=== PATIENT | male | born 1975 | race Caucasian/White ===

== ENCOUNTER 2023-06-12 04:01 | Inpatient (IN) | payer SELFPAY ==
[2023-06-12] VITALS (148 sets, daily range): BP systolic 113–182; BP diastolic 52–99; PULSE 61–147; RESP 0–36; TEMP 36.4–37.9; O2SAT 9–97
--- NOTE | 2023-06-12 04:00 | RT.EKG_ITS ---
APPROVED REPORT Exam: Resting ECG Reason for Exam: overdose Patient Location: E HR:145 bpm ECG Measurements Heart Rate [address] [id number] P [id number] QRSd 144 QRS 93 QT 321 T -85 QTc 496 Conclusion Atrial flutter with poor baseline due to movement artifact
[2023-06-12] MEDS: Naloxone 0.4 MG/ML VIAL 2 MG IVP (04:05)
[2023-06-12] MEDS: Naloxone 0.4 MG/ML VIAL (04:07)
--- NOTE | 2023-06-12 04:15 | DI.RAD_ITS ---
Exam(s) XR PORTABLE CHEST AP EXAM: XR PORTABLE CHEST AP CLINICAL HISTORY: overdose, narcan given TECHNIQUE: 2D digital imaging was performed of the chest. One image was obtained. An AP view was ob tained. COMPARISON: No exams were available for comparison FINDINGS: There is poor inspiration. MEDIASTINUM: Normal. HEART: Mild cardiomegaly. PULMONARY VASCULATURE: There is mild pulmonary venous congestion. LUNGS: No focal consolidating infiltrates. PLEURAL SPACE: No pleural effusion or pneumothorax. BONE:Within normal limits for the patient's age. OTHER FINDINGS:Normal. IMPRESSION: 1. No focal consolidating infiltrates. 2. Exam limited by poor inspiration. 3. Mild cardiomegaly and pulmonary venous congestion. DATA REPOSITORY: RADIATION DOSE DELIVERED:
--- NOTE | 2023-06-12 04:15 | RT.EKG_ITS ---
APPROVED REPORT Exam: Resting ECG Reason for Exam: tachycardia, overdose Patient Location: E HR:90 bpm ECG Measurements Heart Rate 90 AXIS PA 171 P 66 QRSd 122 QRS 77 QT 389 T 33 QTc 477 Conclusion Sinus rhythm...normal P axis, V-rate 60- 99 Probable left atrial enlargement...P >50mS, <-0.10mV V1 Left ventricular hypertrophy...multiple LVH criteria
[2023-06-12] MEDS: Normal Saline 1,000 ML 1000 ML IV ×2 (04:25→08:32)
--- NOTE | 2023-06-12 04:26 | NUR.NOTE ---
AT 0408 pt STARTED BECOMING AGITATED AND COMBATIVE. pt WAS THRASHING IN BED. Nursing Note:
[2023-06-12 04:28] LABS: Abs Immature Grans 0.42 10^3/uL (0.0-0.06); Absolute Basophil Count 0.12 10^3/uL (0.0-0.2); Absolute Eosinophil Count 0.12 10^3/uL (0.0-0.7); Absolute Monocyte Count 0.96 10^3/uL (0.1-0.8); Basophils % 0.8; Eosinophils % 0.8; HCT 51.9 % (40.0-50.0); HGB 17.2 g/dL (13.5-17.5); Immature Grans % 2.8; Lymphocytes % 13.3; MCH 30.7 pg (27.0-33.0); MCHC 33.1 % (32.0-36.0); MCV 93 fL (80-95); MPV 9.7 fL (8.0-11.0); Monocytes % 6.4; Neutrophils % 75.9; Platelet Count 298 10^3/uL (130-400); RBC 5.61 10^6/uL (4.36-5.78); RDW 13.4 % (11.8-14.1); WBC 15.02 10^3/uL (4.4-10.8)
[2023-06-12 04:36] LABS: Lactate 10.6 mmol/L (0.6-1.4)
[2023-06-12 04:43] LABS: Prothrombin Time 10.4 sec (9.1-11.1)
[2023-06-12 04:45] LABS: Creatine Kinase 147 U/L (39-308)
[2023-06-12 04:47] LABS: ALT 50 U/L (16-63); AST 26 U/L (15-37); Albumin 4.3 g/dL (3.4-5.0); Alkaline Phosphatase 82 U/L (46-116); Anion Gap 9.1 mmol/L (3-11); BUN 14 mg/dL (7-18); Bilirubin, Total 0.5 mg/dL (0.2-1.0); CO2 28.9 mmol/L (21.0-32.0); CREATININE 1.8 mg/dL (0.70-1.30); Calcium 9.1 mg/dL (8.5-10.1); Chloride 101 mmol/L (98-107); Estimated GFR 47.01 (mL/min/1.73m2); Magnesium 2.8 mg/dL (1.8-2.4); Potassium 4.1 mmol/L (3.5-5.1); Sodium 139 mmol/L (136-145); Total Protein 7.5 g/dL (6.4-8.2); Troponin I < 50 ng/L (<or=60)
[2023-06-12 04:53] LABS: Glucose 555 mg/dL (74-106)
[2023-06-12 04:58] LABS: ETHANOL BLOOD < 3.0 mg/dL (<10)
--- NOTE | 2023-06-12 05:13 | W.ED.GENAD ---
HPI General Stated Complaint: GenMedical ADALID: 2 Date/Time Provider Initiated Documentation: 06/12/23 04:18. HPI Narrative: The patient is a 43-year-old male, with an unknown past medical history, who presents to the emergency department this evening as a narcotic overdose from a private vehicle. Initially the emergency room was contacted by the patient's mother, who is not a parent but some form of manager social responsibility that the patient was in transit to come and stay with. He was being transported to the area by a woman named Allison who initially identified herself as his sister, but the patient denied that Allison was his sister. According to Allison, the patient got into the car with her and initially seem to be normal. He quickly fell asleep and about an hour into the drive began having abnormal respirations. Allison was unable to wake him from his stupor and ultimately contacted the patient's mother. She recommended that the driver material handler truly bring him to an [facility] for evaluation. On arrival the patient was found to be unresponsive, with pinpoint pupils, and diffusely mottled with some areas of what appear to be compression or abrasion base trauma. The patient was obviously unable to provide any history, and the history was provided by the patient's mother. [facility] Social History Smoking/Tobacco Use Status: Unknown Smoking risk assessment performed?: Yes Substance use type: unknown Exam HENMT Other: The patient has bitten his tongue and has some blood coming from his mouth. The nose appears to have a abrasion on the soft tissue component of the zonia. Eyes Other: Pinpoint pupils Resp Other: Sonorous, shallow respirations with profound hypoxia Cardio Other: The patient is in an irregular tachycardia which appears to be A-fib or flutter on the monitor. Skin Other: The skin is mottled with central cyanosis, there are several areas on the chest and extremities which appear to have compression based petechial injuries, likely from laying in a dependent position for a protracted period of time. Neuro Other: The patient was initially completely unresponsive. After being given 2 mg of intranasal Narcan and 1.8 mg of IV Narcan, the patient began screaming uncontrollably and with difficulty controlling him. He required mechanical restraints. After period of time, the patient became less stuporous and more interactive and conversant. He appeared to wake up and is spontaneously moving all 4 extremities and is interactive and making cogent sense. Course Vital Signs Vital signs: Vital Signs Pulse 115 H 06/12/23 04:04 Respiratory Rate 0 L 06/12/23 04:04 Blood Pressure 156/74 H 06/12/23 04:04 Pulse Oximetry 80 L 06/12/23 04:04 Temperature 36.5 C 06/12/23 04:14 Pulse 92 H 06/12/23 04:46 Pulse 94 H 06/12/23 04:50 Respiratory Rate 14 06/12/23 04:50 Respiratory Pattern Apnea 06/12/23 04:09 Blood Pressure 168/82 H 06/12/23 04:46 Blood Pressure Mean 113 06/12/23 04:46 Pulse Oximetry 96 06/12/23 04:14 Lab/Test Results Lab/Test Results: Laboratory Tests Range/Units 06/12/23 06/12/23 04:10 04:28 WBC (4.4-10.8) 10^3/uL 15.02 H RBC (4.36-5.78) 10^6/uL 5.61 Hgb (13.5-17.5) g/dL 17.2 Hct (40.0-50.0) % 51.9 H MCV (80-95) fL 93 MCH (27.0-33.0) pg 30.7 MCHC (32.0-36.0) % 33.1 RDW (11.8-14.1) % 13.4 Plt Count (130-400) 10^3/uL 298 MPV (8.0-11.0) fL 9.7 Immature Gran % 2.8 Neutrophils % 75.9 Lymphocytes % 13.3 Monocytes % 6.4 Eosinophils % 0.8 Basophils % 0.8 Nucleated RBC % (0.0-0.3) % 0.0 Absolute Neutrophils (1.2-6.7) 10^3/uL 11.40 H Absolute Lymphocytes (1.2-3.4) 10^3/uL 2.00 Absolute Monocytes (0.1-0.8) 10^3/uL 0.96 H Absolute Eosinophils (0.0-0.7) 10^3/uL 0.12 Absolute Basophils (0.0-0.2) 10^3/uL 0.12 PT (9.1-11.1) sec 10.4 INR (0.9-1.1) 1.0 APTT (23.6-32.8) sec 27.0 VBG Lactate (0.6-1.4) mmol/L 10.6 H* Sodium (136-145) mmol/L 139 Potassium (3.5-5.1) mmol/L 4.1 Chloride (98-107) mmol/L 101 Carbon Dioxide (21.0-32.0) mmol/L 28.9 Anion Gap (3-11) mmol/L 9.1 BUN (7-18) mg/dL 14 Creatinine (0.70-1.30) mg/dL 1.8 H Est GFR (CKD-EPI 2020) (mL/min/1.73m2) 47.01 Glucose (74-106) mg/dL 555 H* Calcium (8.5-10.1) mg/dL 9.1 Magnesium (1.8-2.4) mg/dL 2.8 H Total Bilirubin (0.2-1.0) mg/dL 0.5 AST (15-37) U/L 26 ALT (16-63) U/L 50 Alkaline Phosphatase (46-116) U/L 82 Creatine Kinase (39-308) U/L 147 Troponin I (<or=60) ng/L < 50 Total Protein (6.4-8.2) g/dL 7.5 Albumin (3.4-5.0) g/dL 4.3 Ethyl Alcohol (<10) mg/dL < 3.0 Medical Decision Making The patient was seen and examined. After he was given Narcan he had a period of agitation but then improved significantly. His atrial fibs/flutter resolved spontaneously after he became more awake and alert and improved his oxygenation. The patient was found to have an elevated lactic acid level, and a markedly elevated glucose level, and some renal insufficiency. The patient was hydrated here in the emergency room with 2 L of normal saline and his fingerstick glucose level has improved to 352 with just the fluid. Most of these laboratory abnormalities seem to be consistent with shock. The patient does not have a significantly elevated CPK level and has no significant electrolyte derangement at this time. The patient will continue to be monitored for improvement in his sensorium and vital signs. He will continue to be hydrated at this time. Disposition will depend the patient's willingness to be admitted to the hospital and recurrent lab testing to determine if the anomalies are improving. Quality:SDOH Health Related Social Needs: No Data to Display Discharge Plan Discharge Details Chief Complaint: GenMedical Primary Care Provider: Unknown,Unknown ED Provider: Shabbir Morales
[2023-06-12] MEDS: Naloxone 0.4 MG/ML VIAL 0.1 MG IVP ×3 (05:43→06:02)
--- NOTE | 2023-06-12 06:10 | W.ED.GENAD ---
HPI General Stated Complaint: GenMedical ADALID: 2 Date/Time Provider Initiated Documentation: 06/12/23 04:18. PFSH Social History Smoking/Tobacco Use Status: Unknown Smoking risk assessment performed?: Yes Substance use type: unknown Course Vital Signs Vital signs: Vital Signs Pulse 115 H 06/12/23 04:04 Respiratory Rate 0 L 06/12/23 04:04 Blood Pressure 156/74 H 06/12/23 04:04 Pulse Oximetry 80 L 06/12/23 04:04 Temperature 36.5 C 06/12/23 04:14 Pulse 102 H 06/12/23 05:31 Pulse 102 H 06/12/23 05:40 Respiratory Rate 10 L 06/12/23 05:40 Respiratory Pattern Apnea 06/12/23 04:09 Blood Pressure 182/88 H 06/12/23 05:31 Blood Pressure Mean 113 06/12/23 05:31 Pulse Oximetry 96 06/12/23 04:14 Respiratory End-tidal CO2 53 06/12/23 05:40 Lab/Test Results Lab/Test Results: Laboratory Tests Range/Units 06/12/23 06/12/23 04:10 04:28 WBC (4.4-10.8) 10^3/uL 15.02 H RBC (4.36-5.78) 10^6/uL 5.61 Hgb (13.5-17.5) g/dL 17.2 Hct (40.0-50.0) % 51.9 H MCV (80-95) fL 93 MCH (27.0-33.0) pg 30.7 MCHC (32.0-36.0) % 33.1 RDW (11.8-14.1) % 13.4 Plt Count (130-400) 10^3/uL 298 MPV (8.0-11.0) fL 9.7 Immature Gran % 2.8 Neutrophils % 75.9 Lymphocytes % 13.3 Monocytes % 6.4 Eosinophils % 0.8 Basophils % 0.8 Nucleated RBC % (0.0-0.3) % 0.0 Absolute Neutrophils (1.2-6.7) 10^3/uL 11.40 H Absolute Lymphocytes (1.2-3.4) 10^3/uL 2.00 Absolute Monocytes (0.1-0.8) 10^3/uL 0.96 H Absolute Eosinophils (0.0-0.7) 10^3/uL 0.12 Absolute Basophils (0.0-0.2) 10^3/uL 0.12 PT (9.1-11.1) sec 10.4 INR (0.9-1.1) 1.0 APTT (23.6-32.8) sec 27.0 VBG Lactate (0.6-1.4) mmol/L 10.6 H* Sodium (136-145) mmol/L 139 Potassium (3.5-5.1) mmol/L 4.1 Chloride (98-107) mmol/L 101 Carbon Dioxide (21.0-32.0) mmol/L 28.9 Anion Gap (3-11) mmol/L 9.1 BUN (7-18) mg/dL 14 Creatinine (0.70-1.30) mg/dL 1.8 H Est GFR (CKD-EPI 2020) (mL/min/1.73m2) 47.01 Glucose (74-106) mg/dL 555 H* Calcium (8.5-10.1) mg/dL 9.1 Magnesium (1.8-2.4) mg/dL 2.8 H Total Bilirubin (0.2-1.0) mg/dL 0.5 AST (15-37) U/L 26 ALT (16-63) U/L 50 Alkaline Phosphatase (46-116) U/L 82 Creatine Kinase (39-308) U/L 147 Troponin I (<or=60) ng/L < 50 Total Protein (6.4-8.2) g/dL 7.5 Albumin (3.4-5.0) g/dL 4.3 Ethyl Alcohol (<10) mg/dL < 3.0 Medical Decision Making Quality:SDOH Health Related Social Needs: No Data to Display Discharge Plan Discharge Details Chief Complaint: GenMedical Primary Care Provider: Unknown,Unknown ED Provider: Shabbir Morales
--- NOTE | 2023-06-12 06:12 | ED.PROG_ITS ---
Date of service: 06/12/23 Time of Service: 06:12 Medical Decision Making The patient's chest x-ray appears to reveal new pulmonary edema. The patient reevaluation at the bedside however does not reveal any significant auscultated lung sounds would be consistent with pulmonary edema. However, the patient continues to have significant hypoxia and is requiring relatively significant amount of supplemental oxygen to maintain a mid 90s saturation. The patient also continues to have a relatively high CO2 level in and expiratory phases. The patient has become somnolent again and has required multiple low doses of IV Narcan to maintain a normal respiratory/ventilatory state. At this time, I have ordered the patient be placed on a Narcan infusion and I have requested the patient be placed on BiPAP. The patient will require continued observation in the hospital with supportive respiratory care, ongoing toxicology care, and observation for improvement in his blood glucose and acute kidney injury. 0800 - The hospital pharmacy reports that at the current drip rate for the Narcan drip, the hospital will be out of Narcan for the weekend within approximately 10 hours. I discussed the case with the morning hospitalist Dr. Herrera, who came down and evaluated the patient. She had recommended that we try to find lateral transfers for the patient and possible to a facility that had a more generous supply of Narcan. After calling several facilities, [facility] has agreed to look at their capacity and determine if they can take the patient in transfer while other smaller facilities have simply declined. Dr. Herrera did interview the patient who reports at this time that he would like to be DNR/DNI. He refused intubation, chest compressions, or cardioversions. He is okay with medical therapy but no other treatments at this time. The case will be signed out to Dr. Dunham pending the final disposition. If [facility] can accept the patient in transfer, then he can be sent to their facility. Otherwise, Dr. Herrera has agreed to admit the patient and utilize the resources that are available for now. Quality:SDOH Health Related Social Needs: No Data to Display Critical Care Time Critical Care Time Critical Care Time: Yes Total Critical Care Time: 120 Attestation: The patient has required multiple reevaluations and multiple medical and respiratory interventions to maintain a normal oxygen saturation and ventilatory state. The patient will be placed on BiPAP and a Narcan infusion to help improve his ongoing opioid toxidrome. Discharge Plan Discharge Details Chief Complaint: GenMedical Primary Care Provider: Unknown,Unknown ED Provider: Shabbir Morales
--- NOTE | 2023-06-12 06:46 | RESPIRATORY ---
ED MD increased BiPap O2 to 35%
--- NOTE | 2023-06-12 07:01 | NUR.NOTE ---
Report given to Alcon LANG Nursing Note:
[2023-06-12 07:40] LABS: BE (Venous) -1 mmol/L (-2-3); HCO3 (Venous) 25 mmol/L (23-28); O2 Sat (Venous) 95 %; TCO2 (Venous) 23 mmol/L (24-29); pCO2 (Venous) 52 mmHg (41-51); pO2 (Venous) 70 mmHg
[2023-06-12 07:41] LABS: Lactate 0.8 mmol/L (0.6-1.4)
[2023-06-12] MEDS: Ondansetron 4 MG/2 ML VIAL (07:52)
--- NOTE | 2023-06-12 08:02 | DI.VRAD_ITS ---
PROCEDURE INFORMATION: Exam: XR Chest Exam date and time: 06/12/2023 5:14 AM Age: 43 years old Clinical indication: Other: Overdose, narcan given TECHNIQUE: Imaging protocol: Radiologic exam of the chest. Views: 1 view. COMPARISON: No relevant prior studies available. FINDINGS: Lungs: Unremarkable. No consolidation. Pleural spaces: Unremarkable. No pleural effusion. No pneumothorax. Heart/Mediastinum: Cardiomegaly with mild congestion Bones/joints: Unremarkable. IMPRESSION: Cardiomegaly with mild congestion Dictated and Authenticated by: Aydee Zhang MD. Ordering:KENDALL Shea MD
--- NOTE | 2023-06-12 08:02 | W.MEDCONSULT ---
Date of service: 06/12/23 Time of Service: 07:30 Assessment and Plan Assessment and plan (1) Acute respiratory failure with hypoxia and hypercapnia: Status: Acute Assessment and plan: In setting of what looks clinically like an opioid overdose. Continue BiPAP support while co-administering narcan gtt. The patient is DNR/DNI, but agrees to BiPAP and to narcan. Due to the dosage of narcan that the patient is requiring to stay awake and his DNR/DNI status, I do feel that transfer to a tertiary care facility which has more narcan in-house is indicated. I have discussed this with Dr Morales, who is pursuing transfer. (2) Opioid overdose: Status: Acute Assessment and plan: As above (3) Elevated troponin: Status: Acute Assessment and plan: In setting of respiratory failure and overdose, as well as Afib, I think this represents demand ischemia. It also sounds like the ME the patient described several years ago at [facility] was a type 2 NSTEMI. Would continue to trend troponins. When able, would benefit from an echocardiogram. Continue cardiac monitoring. (4) Afib: Status: Resolved Assessment and plan: Was self-limited at the time of acute respiratory failure and overdose. Continue cardiac monitoring. Obtain an echo when able. (5) Hyperglycemia: Status: Acute Assessment and plan: The patient denies h/o DM. Obtain an A1C and await UA. His original BMP was not c/w DKA. (6) Leucocytosis: Status: Acute Assessment and plan: Likely reactive given an overdose event. I will add on a procalcitonin. The patient denies IVD use, but blood cultures might be prudent to check as well. Await UA. (7) Hypermagnesemia: Status: Acute Assessment and plan: Will need trending. (8) Lactic acidosis: Status: Resolved Assessment and plan: In setting of respiratory failure/overdose/Afib. This appears to have resolved. (9) Cardiomegaly: Status: Chronic Assessment and plan: Seen on CXR with evidence of mild pulmonary congestion. Check NT-proBNP and obtain an echo when able. I am ordering all of the above recommended labs. Please, do not hesitate to contact me with any questions re help of management of this patient while he is awaiting transfer. Discussed with Dr Morales. Total Critical Care Time 45 minutes. History of Present Illness History of Present Illness Chief Complaint: unintentional overdose likely with fentanyl Narrative: Mr Blanc is a 43 year old male with PMHx of polysubstance abuse (heroin in the past, cocaine, marijuana, psilocybin), who was brought to [facility] ED by a friend today (who was driving) after falling asleep, developing sonorous breathing, and becoming unresponsive in a vehicle (was a passenger) 15 minutes after smoking what the patient states he thought was cocaine. On arrival to the ER parking lot, the patient was unresponsive, cyanotic, and had pinpoint pupils. He received 0.8 mg of narcan with return to consciousness and becoming agitated. Agitation was self-limited. The patient was requiring supplemental oxygen and had evidence of hypoventilation by end-tidal CO2. He started to become more somnolent clinically as well. At that point, 4 more mg of narcan were given, followed by again need to give narcan about a half an hour later. He required several additional boluses of narcan, at which point a decision was made to start him on the narcan drip. He was also placed on BiPAP for his acute hypoxic hypercapnic respiratory failure due to CO2 narcosis in setting of likely opioid overdose. The patient himself states that until about a month ago he was only using marijuana. He did not think he was using an opiate last night. At the time of my exam, he denies CP, SOB, does endorse feeling tired/sleepy, and did develop n/v, which then resolved. He was briefly taken off of BiPAP while he was vomiting, but after he received antiemetics and symptoms resolved, was being placed on it. The patient had required He was also in rapid Afib/flutter in 150s on arrival, spontaneously converting to NSR. The patient also had hyperglycemia with BG of 555 on the original chemistry. The patient denies history of diabetes. No evidence of acidosis was seen on that original chemistry. His initial lactate was 10.6; repeat is 0.8. His repeat fingerstick was 352. UA and UDS are not yet available. The patient was A&Ox3 during my conversation with him. He was able to have a discussion with me about his code status, as was witnessed by nursing and the ED provider. He stated that he did not want to be rescucitated: no intubation or chest compression, even for a reversible cause such as an overdose. He is ok with the use of BiPAP. We discussed the narcan shortage at our facility and the fact that we are seeking transfer to a facility with more narcan available (at our facility, at his current rate of narcan drip, we have 5-6 hours of narcan left). The patient verbalized understanding. Review of Systems All systems reviewed & are unremarkable except as noted in HPI and below PFSH All Active Problems (Updated 06/12/23 @ 08:35 by Ann-Marie Herman MD) Cardiomegaly (Chronic) Hypermagnesemia (Acute) Leucocytosis (Acute) Hyperglycemia (Acute) Elevated troponin (Acute) Opioid overdose (Acute) Acute respiratory failure with hypoxia and hypercapnia (Acute) Polysubstance use disorder (Acute) Medical History (Updated 06/12/23 @ 08:35 by Ann-Marie Herman MD) Overdose heroin overdose several years ago Rupture of left biceps tendon Opioid overdose Myocardial infarction [facility], in setting of overdose; no cardiac catheterization performed at that time, per patient Surgical History (Updated 06/12/23 @ 08:19 by Ann-Marie Herman MD) H/O meniscectomy of right knee x2 History of lumbosacral spine surgery Femur fracture, left S/p surgical repair Thumb injury R thumb requiring pinning Family History (Updated 06/12/23 @ 08:20 by Ann-Marie Herman MD) Mother Heart disease Diabetes Hypertension Father Heart disease Diabetes Hypertension Maternal Aunt Cancer type unknown Maternal Grandmother Cancer type unknown Social History (Updated 06/12/23 @ 08:21 by Ann-Marie Herman MD) Smoking/Tobacco Use Status: Current every day Smoking risk assessment performed?: Yes Alcohol Intake: never Substance use type: marijuana, crack/cocaine, hallucinogens and opiates Counseling given: Yes Counseling provided: provider counseling Exam Narrative Exam Narrative: General: A somnolent but arousable middle-aged male who is A&Ox3, but does dose off in the middle of the interview, cooperative and pleasant when awake, seen on BiPAP and then taken off of it when started vomiting and placed on 4L of O2 by NC Neurological: A&Ox3, pupils pinpoint, no focal deficits Psychiatric: Appropriate speech pattern/content Skin: nasal and L-sided facial early ecchymoses/skin contusions HEENT: Atraumatic, normocephalic, EOMI, pinpoint pupils, MMM, no goiter or JVD Cardiovascular: RRR, no m/r/g Lungs: CTAB Gastrointestinal: nondistended Genitourinary: no davis at the time of exam Extremities: no edmea BLEs, 1+ pedal pulses B Results Last Vital Signs Temp 36.5 C 06/12/23 04:14 Pulse 82 06/12/23 06:46 Resp 17 06/12/23 06:46 BP 137/84 06/12/23 06:46 Pulse Ox 96 06/12/23 06:32 Labs 06/12/23 04:10 06/12/23 04:10 Labs: Laboratory Results - last 24 hr 06/12/23 06/12/23 06/12/23 04:10 04:28 07:36 WBC 15.02 H RBC 5.61 Hgb 17.2 Hct 51.9 H MCV 93 MCH 30.7 MCHC 33.1 RDW 13.4 Plt Count 298 MPV 9.7 Immature Gran % 2.8 Neutrophils % 75.9 Lymphocytes % 13.3 Monocytes % 6.4 Eosinophils % 0.8 Basophils % 0.8 Nucleated RBC % 0.0 Absolute Neutrophils 11.40 H Absolute Lymphocytes 2.00 Absolute Monocytes 0.96 H Absolute Eosinophils 0.12 Absolute Basophils 0.12 PT 10.4 INR 1.0 APTT 27.0 VBG pH 7.30 L VBG pCO2 52 H VBG pO2 70 VBG HCO3 25 VBG Total CO2 23 L VBG O2 Saturation 95 VBG Base Excess -1 VBG Lactate 10.6 H* 0.8 Sodium 139 Potassium 4.1 Chloride 101 Carbon Dioxide 28.9 Anion Gap 9.1 BUN 14 Creatinine 1.8 H Est GFR (CKD-EPI 2020) 47.01 Glucose 555 H* Calcium 9.1 Magnesium 2.8 H Total Bilirubin 0.5 AST 26 ALT 50 Alkaline Phosphatase 82 Creatine Kinase 147 Troponin I < 50 Total Protein 7.5 Albumin 4.3 Ethyl Alcohol < 3.0 Imaging Imaging Studies: CXR: Cardiomegaly with mild congestion EKG #1: poor quality EKG, does appear to be irregularly irregular c/w A.fib, HR 145, apparent inferior T wave inversions, but no further conclusions can be drawn and no baseline available for comparison EKG #2: NSR, HR 90, no acute ischemia
[2023-06-12 08:05] LABS: Troponin I 233 ng/L (<or=60)
--- NOTE | 2023-06-12 08:15 | DI.CT_ITS ---
Exam(s) CT HEAD CERVICAL SPINE WO EXAM: CT HEAD CERVICAL SPINE WO CLINICAL HISTORY: trauma. TECHNIQUE: Imaging Protocol: Axial computed tomography images with coronal and sagittal reformatted images were created and reviewed COMPARISON: No exams were available for comparison FINDINGS: CT Head: Ventricles and Extra axial spaces: Normal in size and morphology for the patient's age. Hemorrhage: None. Cerebral parenchyma: Normal. Midline shift: None. Brainstem/Cerebellum: Normal. Calvarium: Normal. Visualized Paranasal sinuses/Mastoids: Clear. Soft Tissues: Unremarkable. CT Cervical Spine: Bones: No acute fracture or subluxation. There are mild degenerative changes seen in the cervical spi ne. Soft Tissues: Unremarkable. Lung Apices: Clear. IMPRESSION: 1. No acute intracranial process. 2. No acute fracture or subluxation in the cervical spine. RADIATION DOSE DELIVERED: 1,230.22mGy.cm Total DLP DATA REPOSITORY: All CT scans at this facility are submitted to the National Radiology Data Registry (NRDR) Dose Index Registry (DIR) with the [employer] ([employer]). RADIATION OPTIMIZATION: All CT scans at this facility use at least one of these dose optimization te chniques: automated exposure control; mA and/or kV adjustment per patient size (includes targeted exa ms where dose is matched to clinical indication); or iterative reconstruction.
--- NOTE | 2023-06-12 08:17 | W.EDPROG ---
Date of service: 06/12/23 Time of Service: 08:41 Medical Decision Making I have received signout. I have seen and examined the patient. We are awaiting a callback from [facility] regarding transfer. The patient appears more awake than he did when I initially saw him at 7 AM. He has vomited twice. We have discontinued the CPAP and put him on a nonrebreather with sats of 99 to 100%. The patient appears to have frostbite on his nose and left cheek. He also has abrasions on his right chest without subcutaneous emphysema or point tenderness. I have informed him of the positive troponin. He tells me he had a similar episode about a year ago and was hospitalized at [facility]. We will attempt to get those records. I have ordered a CT of his head C-spine chest and abdomen all without IV contrast, because of his acute renal injury.. I have reviewed his EKGs and there is no evidence of acute ischemia. 10:27 AM I have spoken with the [facility] and they have no record of the patient ever being admitted there. His mental status has much improved. We have discontinued the Narcan drip and he is still responsive and still requiring supplemental oxygen. He is only on 3 L with an O2 sat of 97% 10:46 A I have spoken to [place] [facility] Valle did not think that the patient required anything further than aspirin. 11:33 AM the patient's third troponin is slightly elevated at 363. We have notified the [facility] transfer center and I am awaiting a callback from the beaming machine operator. I have spoken with Dr. Valle the beaming machine operator at [facility] again. He did not recommend any change in treatment since the patient's EKG is unchanged and he is not having any chest pain. I have discussed the case with Dr. Herman the hospitalist here who has agreed to admit him. Imaging Data Radiologic Study: Imaging: CT Scan (CT chest without contrast) Radiologist's impression: vRad impression: Right lower lobe infiltrate. This may be related to infection, contusion or aspiration. Radiologic Study #2: Imaging: CT Scan (CT abdomen and pelvis without contrast) Radiologist's impression: vRad impression no acute findings. Radiologic Study #3: Imaging: CT Scan (CT head without contrast) Radiologist's impression: Normal head CT Radiologic Study #4: Imaging: CT Scan (CT cervical spine without contrast) Radiologist's impression: vRad impression no acute findings Radiologic Study #5: Imaging: CT Scan (CT head noncontrast) Radiologist's impression: Normal head CT Radiologic Study #6: Imaging: CT Scan (CT C-spine without contrast) Radiologist's impression: vRad impression no acute findings. Lab Data Lab results reviewed: Yes I reviewed the patient's lab results. Lab results narrative: The patient is positive for COVID. His blood sugar has improved last fingerstick was slightly greater than 100. Quality:SDOH Health Related Social Needs: No Data to Display Sign Out Sign Out Data: Sign Out Comment: The patient is currently being evaluated for transfer by [facility] and [facility]. Dr. Herrera came and evaluated the patient and is willing to admit the patient if the other facilities declined to take him in transfer. Last updated by Shabbir Morales MD at 06/12/23 08:05 Discharge Plan Discharge Details Chief Complaint: GenMedical Admit Date/Time: 06/12/23 12:00 Admit Provider: Ann-Marie Herman Attending Provider: Ann-Marie Herman Primary Care Provider: Unknown,Unknown ED Provider: Ashlyn Perez
--- NOTE | 2023-06-12 08:30 | DI.CT_ITS ---
Exam(s) CT CHEST/ABD/PEL WO EXAM: CT CHEST/ABD/PEL WO CLINICAL HISTORY: trauma TECHNIQUE: Imaging Protocol: Axial computed tomography images with coronal and sagittal reformatted images were created and reviewed COMPARISON: CR,XR XR PORTABLE CHEST AP from 06/12/2023 FINDINGS: There is artifact from the patient's arm placement. CHEST: Tracheobronchial tree: Patent where visualized. There is a small amount of debris seen in the distal trachea which may reflect aspiration. Pulmonary parenchyma: Atelectatic changes are seen in the lung bases. There is a peripheral infiltra te in the posterior medial aspect of the right lower lobe. The lungs are otherwise clear. No oneil ectural distortion. Calcified granuloma in the right lower lobe. Mediastinum and Ana: No dominant adenopathy or fluid collection. The esophagus is unremarkable. Thyroid gland: Unremarkable. Pleura: No effusion or pneumothorax. Heart: The heart is not dilated. No coronary artery calcifications are seen. No pericardial effusion. Aorta: Thoracic aorta non-dilated. Lymph nodes: Within normal limits. Bones:Within normal limits for the patient's age. Soft tissues: Unremarkable. ABDOMEN: Liver: Normal density. No measurable mass. Gallbladder and Biliary Tract: No radiodense calculus or dilation. Pancreas: Normal density, no abnormal calcifications or inflammatory process. Spleen: Normal. Adrenals: No masses seen. Kidneys: Normal size, contour and axis. No radiodense stones or obstructive uropathy. No masses seen. Abdominal Aorta: Abdominal portion non-dilated. Bowel: There is diverticulosis of the colon without evidence of acute diverticulitis. There is no ev idence of bowel obstruction or bowel wall thickening. There is a normal appendix. Peritoneal Cavity: No ascites, collection or mesenteric inflammatory response. No free air. Lymph Nodes: Within normal limits. Bones: Within normal limits for the patient's age. Soft Tissues: There is a small fat containing umbilical hernia. PELVIS: Bladder: Symmetric distention, no gross wall thickening. Reproductive Organs: Unremarkable as visualized. Lymph Nodes: Within normal limits. Bones: Within normal limits for the patient's age. IMPRESSION: 1. Right lower lobe infiltrate. Differential considerations include infection or contusion. Aspirat ion should be considered. 2. No acute abdominal or pelvic process. RADIATION DOSE DELIVERED: 1,718.48mGy.cm Total DLP 1,718.48mGy.cm Total DLP DATA REPOSITORY: All CT scans at this facility are submitted to the National Radiology Data Registry (NRDR) Dose Index Registry (DIR) with the [employer] (A[employer]). RADIATION OPTIMIZATION: All CT scans at this facility use at least one of these dose optimization te chniques: automated exposure control; mA and/or kV adjustment per patient size (includes targeted exa ms where dose is matched to clinical indication); or iterative reconstruction.
[2023-06-12] MEDS: Droperidol 5 MG/2 ML VIAL 1.25 MG IVP (08:31)
[2023-06-12] MEDS: Aspirin 81 MG CHEW 324 MG CH (09:06)
[2023-06-12 09:11] LABS: Lab Add On Test DONE
[2023-06-12 09:29] LABS: Hemoglobin A1C 5.8 % (<5.7)
[2023-06-12] MEDS: Normal Saline Flush 10 ML SYR IVP ×2 (09:29→22:41)
--- NOTE | 2023-06-12 09:33 | DI.VRAD_ITS ---
PROCEDURE INFORMATION: Exam: CT Chest Without Contrast; Diagnostic Exam date and time: 06/12/2023 8:56 AM Age: 43 years old Clinical indication: Other: ? Od, fall TECHNIQUE: Imaging protocol: Diagnostic computed tomography of the chest without contrast. COMPARISON: CR XR PORTABLE CHEST AP 06/12/2023 5:14 AM FINDINGS: Lungs: Right lower lobe infiltrate. Pleural spaces: Unremarkable. No pneumothorax. No pleural effusion. Heart: Unremarkable. No cardiomegaly. No pericardial effusion. Lymph nodes: Unremarkable. No enlarged lymph nodes. Vasculature: Unremarkable. No aortic aneurysm. Bones/joints: Unremarkable. No acute fracture. Soft tissues: Unremarkable. IMPRESSION: Right lower lobe infiltrate. This may be related to infection, contusion or aspiration. PROCEDURE INFORMATION: Exam: CT Abdomen And Pelvis Without Contrast Exam date and time: 06/12/2023 8:56 AM Age: 43 years old Clinical indication: Other: ? Od, fall TECHNIQUE: Imaging protocol: Computed tomography of the abdomen and pelvis without contrast. COMPARISON: CR XR PORTABLE CHEST AP 06/12/2023 5:14 AM FINDINGS: Liver: Normal. No mass. Gallbladder and bile ducts: Normal. No calcified stones. No ductal dilation. Pancreas: Normal. No ductal dilation. Spleen: Normal. No splenomegaly. Adrenal glands: Normal. No mass. Kidneys and ureters: Normal. No hydronephrosis. Stomach and bowel: Unremarkable. No obstruction. No mucosal thickening. Appendix: No evidence of appendicitis. Intraperitoneal space: Unremarkable. No free air. No significant fluid collection. Vasculature: Unremarkable. No abdominal aortic aneurysm. Lymph nodes: Unremarkable. No enlarged lymph nodes. Urinary bladder: Unremarkable as visualized. Reproductive: Unremarkable as visualized. Bones/joints: Unremarkable. No acute fracture. Soft tissues: Unremarkable. IMPRESSION: No acute findings. Dictated and Authenticated by: Aydee Zhang MD. Ordering:EDDIE Goldberg MD
[2023-06-12 09:35] LABS: Influenza A PCR Negative (Negative); Influenza B PCR Negative (Negative); RSV PCR Negative (Negative)
--- NOTE | 2023-06-12 09:35 | DI.VRAD_ITS ---
PROCEDURE INFORMATION: Exam: CT Head Without Contrast Exam date and time: 06/12/2023 8:54 AM Age: 43 years old Clinical indication: Other: ? Od, fall TECHNIQUE: Imaging protocol: Computed tomography of the head without contrast. COMPARISON: No relevant prior studies available. FINDINGS: Brain: Normal. No intraxial or extraaxial hemorrhage. No infarct visible at this time. Unremarkable white matter. No mass effect. No significant involutional change. Cerebral ventricles: Normal. No ventriculomegaly or midline shift. Pituitary gland and sella: Normal. No enlargement. Paranasal sinuses: Visualized sinuses are unremarkable. No fluid levels or mucosal thickening. Mastoid air cells: Visualized mastoid air cells are well aerated. Bones/joints: Unremarkable. No acute fracture. Soft tissues: Unremarkable. Vasculature: No significant atherosclerotic calcification. IMPRESSION: Normal head CT. PROCEDURE INFORMATION: Exam: CT Cervical Spine Without Contrast Exam date and time: 06/12/2023 8:54 AM Age: 43 years old Clinical indication: Other: ? Od, fall TECHNIQUE: Imaging protocol: Computed tomography of the cervical spine without contrast. COMPARISON: CR XR PORTABLE CHEST AP 11/06/2023 05:14 FINDINGS: Bones/joints: Cervical vertebral bodies are normal in height and alignment with no fracture. Odontoid process is intact. Disc space narrowing is present at C6-C7. In the posterior column facet joints are normally aligned with no hypertrophic change or trauma. Lungs: Lung apices are clear. Soft tissues: Unremarkable. No prevertebral soft tissue swelling. IMPRESSION: No acute findings. Dictated and Authenticated by: Alexis Faulkner MD. Ordering:EDDIE Goldberg MD
[2023-06-12 09:37] LABS: NT-proBNP 123 pg/mL (<300)
[2023-06-12 09:38] LABS: COVID-19 PCR Positive (Negative); Source Nasopharynx
[2023-06-12 09:48] LABS: Procalcitonin 1.7 ng/mL
[2023-06-12] MEDS: Normal Saline 1,000 ML 125 ML IV (10:00)
[2023-06-12] MEDS: Dexamethasone 4 MG/ML VIAL 6 MG IVP (10:25)
[2023-06-12] MEDS: AMPICILLIN/SULBACTAM 3 GM in Normal Saline 100 ML IVPB ×3 (10:25→22:23)
[2023-06-12] MEDS: REMDESIVIR 200 MG in Normal Saline 250 ML 250 MG IVPB (10:54)
[2023-06-12 11:14] LABS: Creatine Kinase 346 U/L (39-308)
[2023-06-12 11:19] LABS: Troponin I 363 ng/L (<or=60)
--- NOTE | 2023-06-12 11:30 | RT.EKG_ITS ---
APPROVED REPORT Exam: Resting ECG Reason for Exam: elevated troponin Patient Location: E HR:71 bpm ECG Measurements Heart Rate 71 AXIS VT 160 P 48 QRSd 113 QRS 62 QT 391 T 45 QTc 426 Conclusion Sinus rhythm...normal P axis, V-rate 60- 99 NSR, no ectopy, nonspecific conduction delay. NO STEMI. no significant changes from previous.
[2023-06-12 11:38] LABS: BE (Venous) -2 mmol/L (-2-3); HCO3 (Venous) 25 mmol/L (23-28); O2 Sat (Venous) 95 %; TCO2 (Venous) 22 mmol/L (24-29); pCO2 (Venous) 51 mmHg (41-51); pH (Venous) 7.29 (7.31-7.41); pO2 (Venous) 67 mmHg
--- NOTE | 2023-06-12 13:27 | NUR.NOTE ---
Patient arrives on ICU unit at 13:10. Patient initially said he did not want to be admitted. RN consults with Dr. Herman who sees patient in ICU. Patient nods that he agrees to be admitted.
--- NOTE | 2023-06-12 13:30 | NUR.NOTE ---
Nursing Note: Got the patient up to the ICU and he stated What am I being admitted? I told her that I did not want to be admitted. Eliezer from the ICU went and spoke with the hospitalist and she told him that she would come in to his room in the ICU and have a conversation with him. He was agreeable to that plan.
--- NOTE | 2023-06-12 13:32 | NUR.NOTE ---
Patient arrives on ICU at 13:10 and did not want to be admitted. RN telephonically consults with MD who is informed of patient's desire not to be admitted. MD meets with patient who nods in agreement that he agrees to being admitted. RN speaks with respiratory therapist and informs her MD would like patient to be on BIPAP. Respiratory therapist to go to ED to retrieve BIPAP machine.Nursing Note:
[2023-06-12] MEDS: Heparin 5,000 UNITS/ML VIAL 5000 UNITS SC ×2 (14:15→22:41)
[2023-06-12] MEDS: Lactated Ringers 1,000 ML 150 ML IV ×2 (14:25→19:56)
[2023-06-12 14:32] LABS: Troponin I 352 ng/L (<or=60)
--- NOTE | 2023-06-12 14:57 | NUR.NOTE ---
[Patient is presently quite sleepy. Patient 2 will be completed once patient awakens a bit more from sleep.Nursing Note:
--- NOTE | 2023-06-12 15:39 | W.PC.ACHO ---
Registration Status: ADM IN Primary Language: Preferred Language: ED Information & Data Chief Complaint GenMedical 06/12/23 05:22 Triage Note PT was unresponsive for an 06/12/23 04:04 extended period of time PT was brought into ed by POV PT was unresponsive on arrival to ED Subjective PT WAS UNRESPONSIVE UPON 06/12/23 04:09 ARIVAL. pt WAS GIVEN 3 DOSES OF NARCAN AND IS MONING AND MOVING IN BED. Medical / Surgical History (Last Updated 06/12/23 @ 08:29 by Ann-Marie Herman MD) Overdose Rupture of left biceps tendon Opioid overdose Myocardial infarction (Last Updated 06/12/23 @ 08:19 by Ann-Marie Herman MD) H/O meniscectomy of right knee History of lumbosacral spine surgery Femur fracture, left Thumb injury Most Recent Vital Signs Temperature 37.5 C 06/12/23 14:35 Temperature Source Temporal Artery Scan 06/12/23 14:35 Pulse 67 06/12/23 14:35 Pulse 72 06/12/23 14:50 Respiratory Rate 13 06/12/23 14:50 Respiratory Effort Non-Labored 06/12/23 14:44 Respiratory Depth Normal 06/12/23 14:44 Respiratory Pattern Normal 06/12/23 14:44 Blood Pressure 129/71 06/12/23 14:35 Blood Pressure Mean 86 06/12/23 14:35 Blood Pressure Position Supine 06/12/23 13:30 Pulse Oximetry 96 06/12/23 14:50 Respiratory End-tidal CO2 49 06/12/23 13:24 Oxygen Delivery Method Bi-pap 06/12/23 14:35 Oxygen Flow Rate 3 06/12/23 13:30 Fraction of Inspired Oxygen (FIO2) 30 06/12/23 14:35 Pain Level 0 06/12/23 14:35 Comment Pressure of 10 peep of 5 06/12/23 14:35 Allergies methamphetamine Allergy (Unknown, Unverified 06/12/23 08:18) Active Medications Generic Name Dose Route Start Last Admin Trade Name Freq PRN Reason Stop Dose Admin Albuterol/Ipratropium 1 puff 06/12/23 13:31 06/12/23 14:32 Ipratropium/Albuterol 4 Gm 120 Puff Inh IH Not Given QID TONY Heparin Sodium (Porcine) 5,000 units 06/12/23 14:00 06/12/23 14:15 Heparin 5,000 Units/Ml Vial SC 5,000 units Q8H TONY Administration Ringer's Solution 1,000 mls @ 150 mls/hr 06/12/23 13:45 06/12/23 14:25 IV 150 mls/hr INFUSION TONY Administration Insulin Aspart 0 units 06/12/23 10:00 06/12/23 10:23 Insulin Aspart 300 Units/3 Ml Pen SC Not Given Q6H [facility] Protocol Naloxone HCl 0.1 mg 06/12/23 05:32 06/12/23 06:02 Naloxone 0.4 Mg/Ml Vial IVP 0.1 mg Q10MIN PRN Administration somnolence, reactivation of opioids IV IV Catheter Type [Right Saline Lock Antecubital] IV Catheter Type [Antecubital] Saline Lock IV Catheter Gauge [Right 18 Antecubital] IV Catheter Gauge [Antecubital 18 ] Diet Orders Category Date Time Status npo [Nothing Per Oral] [DIET] Nutrition 06/12/23 Lunch Active Diagnostics 06/12/23 06/12/23 06/12/23 Range/Units Unknown 13:50 11:25 WBC (4.4-10.8) 10^3/uL RBC (4.36-5.78) 10^6/uL Hgb (13.5-17.5) g/dL Hct (40.0-50.0) % MCV (80-95) fL MCH (27.0-33.0) pg MCHC (32.0-36.0) % RDW (11.8-14.1) % Plt Count (130-400) 10^3/uL MPV (8.0-11.0) fL Immature Gran % Neutrophils % Lymphocytes % Monocytes % Eosinophils % Basophils % Nucleated RBC % (0.0-0.3) % Absolute Neutrophils (1.2-6.7) 10^3/uL Absolute Lymphocytes (1.2-3.4) 10^3/uL Absolute Monocytes (0.1-0.8) 10^3/uL Absolute Eosinophils (0.0-0.7) 10^3/uL Absolute Basophils (0.0-0.2) 10^3/uL PT (9.1-11.1) sec INR (0.9-1.1) APTT (23.6-32.8) sec VBG pH 7.29 L (7.31-7.41) VBG pCO2 51 (41-51) mmHg VBG pO2 67 mmHg VBG HCO3 25 (23-28) mmol/L VBG Total CO2 22 L (24-29) mmol/L VBG O2 Saturation 95 % VBG Base Excess -2 (-2-3) mmol/L VBG Lactate (0.6-1.4) mmol/L Sodium (136-145) mmol/L Potassium (3.5-5.1) mmol/L Chloride (98-107) mmol/L Carbon Dioxide (21.0-32.0) mmol/L Anion Gap (3-11) mmol/L BUN (7-18) mg/dL Creatinine (0.70-1.30) mg/dL Est GFR (CKD-EPI 2020) (mL/min/1.73m2) Glucose (74-106) mg/dL Hemoglobin A1c (<5.7) % Calcium (8.5-10.1) mg/dL Magnesium (1.8-2.4) mg/dL Total Bilirubin (0.2-1.0) mg/dL AST (15-37) U/L ALT (16-63) U/L Alkaline Phosphatase (46-116) U/L Creatine Kinase (39-308) U/L Troponin I 352 H* (<or=60) ng/L NT-Pro-B Natriuret Pep (<300) pg/mL Total Protein (6.4-8.2) g/dL Albumin (3.4-5.0) g/dL Procalcitonin ng/mL Urine Color Urine Clarity Urine pH Ur Specific [place] Urine Protein Urine Ketones Urine Blood Urine Nitrite Urine Bilirubin Urine Urobilinogen Ur Leukocyte Esterase Urine Glucose Urine Opiates Screen Ur Barbiturates Screen Ur Tricyclics Screen Ur Amphetamines Screen U Benzodiazepines Scrn Urine Cocaine Screen Ur THC Screen Ethyl Alcohol (<10) mg/dL COVID-19 Source SARS-CoV-2 (PCR) (Negative) Influenza Type A (PCR) (Negative) Influenza Type B (PCR) (Negative) RSV (PCR) (Negative) Add-On Test Request DONE 06/12/23 06/12/23 06/12/23 Range/Units 10:30 08:30 07:36 WBC (4.4-10.8) 10^3/uL RBC (4.36-5.78) 10^6/uL Hgb (13.5-17.5) g/dL Hct (40.0-50.0) % MCV (80-95) fL MCH (27.0-33.0) pg MCHC (32.0-36.0) % RDW (11.8-14.1) % Plt Count (130-400) 10^3/uL MPV (8.0-11.0) fL Immature Gran % Neutrophils % Lymphocytes % Monocytes % Eosinophils % Basophils % Nucleated RBC % (0.0-0.3) % Absolute Neutrophils (1.2-6.7) 10^3/uL Absolute Lymphocytes (1.2-3.4) 10^3/uL Absolute Monocytes (0.1-0.8) 10^3/uL Absolute Eosinophils (0.0-0.7) 10^3/uL Absolute Basophils (0.0-0.2) 10^3/uL PT (9.1-11.1) sec INR (0.9-1.1) APTT (23.6-32.8) sec VBG pH 7.30 L (7.31-7.41) VBG pCO2 52 H (41-51) mmHg VBG pO2 70 mmHg VBG HCO3 25 (23-28) mmol/L VBG Total CO2 23 L (24-29) mmol/L VBG O2 Saturation 95 % VBG Base Excess -1 (-2-3) mmol/L VBG Lactate 0.8 (0.6-1.4) mmol/L Sodium (136-145) mmol/L Potassium (3.5-5.1) mmol/L Chloride (98-107) mmol/L Carbon Dioxide (21.0-32.0) mmol/L Anion Gap (3-11) mmol/L BUN (7-18) mg/dL Creatinine (0.70-1.30) mg/dL Est GFR (CKD-EPI 2020) (mL/min/1.73m2) Glucose (74-106) mg/dL Hemoglobin A1c (<5.7) % Calcium (8.5-10.1) mg/dL Magnesium (1.8-2.4) mg/dL Total Bilirubin (0.2-1.0) mg/dL AST (15-37) U/L ALT (16-63) U/L Alkaline Phosphatase (46-116) U/L Creatine Kinase 346 H (39-308) U/L Troponin I 363 H* 233 H* (<or=60) ng/L NT-Pro-B Natriuret Pep (<300) pg/mL Total Protein (6.4-8.2) g/dL Albumin (3.4-5.0) g/dL Procalcitonin ng/mL Urine Color Urine Clarity Urine pH Ur Specific [place] Urine Protein Urine Ketones Urine Blood Urine Nitrite Urine Bilirubin Urine Urobilinogen Ur Leukocyte Esterase Urine Glucose Urine Opiates Screen Ur Barbiturates Screen Ur Tricyclics Screen Ur Amphetamines Screen U Benzodiazepines Scrn Urine Cocaine Screen Ur THC Screen Ethyl Alcohol (<10) mg/dL COVID-19 Source Nasopharynx SARS-CoV-2 (PCR) Positive A (Negative) Influenza Type A (PCR) Negative (Negative) Influenza Type B (PCR) Negative (Negative) RSV (PCR) Negative (Negative) Add-On Test Request 06/12/23 06/12/23 06/12/23 Range/Units 07:30 04:50 04:28 WBC (4.4-10.8) 10^3/uL RBC (4.36-5.78) 10^6/uL Hgb (13.5-17.5) g/dL Hct (40.0-50.0) % MCV (80-95) fL MCH (27.0-33.0) pg MCHC (32.0-36.0) % RDW (11.8-14.1) % Plt Count (130-400) 10^3/uL MPV (8.0-11.0) fL Immature Gran % Neutrophils % Lymphocytes % Monocytes % Eosinophils % Basophils % Nucleated RBC % (0.0-0.3) % Absolute Neutrophils (1.2-6.7) 10^3/uL Absolute Lymphocytes (1.2-3.4) 10^3/uL Absolute Monocytes (0.1-0.8) 10^3/uL Absolute Eosinophils (0.0-0.7) 10^3/uL Absolute Basophils (0.0-0.2) 10^3/uL PT (9.1-11.1) sec INR (0.9-1.1) APTT (23.6-32.8) sec VBG pH (7.31-7.41) VBG pCO2 (41-51) mmHg VBG pO2 mmHg VBG HCO3 (23-28) mmol/L VBG Total CO2 (24-29) mmol/L VBG O2 Saturation % VBG Base Excess (-2-3) mmol/L VBG Lactate 10.6 H* (0.6-1.4) mmol/L Sodium (136-145) mmol/L Potassium (3.5-5.1) mmol/L Chloride (98-107) mmol/L Carbon Dioxide (21.0-32.0) mmol/L Anion Gap (3-11) mmol/L BUN (7-18) mg/dL Creatinine (0.70-1.30) mg/dL Est GFR (CKD-EPI 2020) (mL/min/1.73m2) Glucose (74-106) mg/dL Hemoglobin A1c 5.8 H (<5.7) % Calcium (8.5-10.1) mg/dL Magnesium (1.8-2.4) mg/dL Total Bilirubin (0.2-1.0) mg/dL AST (15-37) U/L ALT (16-63) U/L Alkaline Phosphatase (46-116) U/L Creatine Kinase (39-308) U/L Troponin I (<or=60) ng/L NT-Pro-B Natriuret Pep 123 (<300) pg/mL Total Protein (6.4-8.2) g/dL Albumin (3.4-5.0) g/dL Procalcitonin 1.7 ng/mL Urine Color Pending Urine Clarity Pending Urine pH Pending Ur Specific [place] Pending Urine Protein Pending Urine Ketones Pending Urine Blood Pending Urine Nitrite Pending Urine Bilirubin Pending Urine Urobilinogen Pending Ur Leukocyte Esterase Pending Urine Glucose Pending Urine Opiates Screen Pending Ur Barbiturates Screen Pending Ur Tricyclics Screen Pending Ur Amphetamines Screen Pending U Benzodiazepines Scrn Pending Urine Cocaine Screen Pending Ur THC Screen Pending Ethyl Alcohol (<10) mg/dL COVID-19 Source SARS-CoV-2 (PCR) (Negative) Influenza Type A (PCR) (Negative) Influenza Type B (PCR) (Negative) RSV (PCR) (Negative) Add-On Test Request 06/12/23 Range/Units 04:10 WBC 15.02 H (4.4-10.8) 10^3/uL RBC 5.61 (4.36-5.78) 10^6/uL Hgb 17.2 (13.5-17.5) g/dL Hct 51.9 H (40.0-50.0) % MCV 93 (80-95) fL MCH 30.7 (27.0-33.0) pg MCHC 33.1 (32.0-36.0) % RDW 13.4 (11.8-14.1) % Plt Count 298 (130-400) 10^3/uL MPV 9.7 (8.0-11.0) fL Immature Gran % 2.8 Neutrophils % 75.9 Lymphocytes % 13.3 Monocytes % 6.4 Eosinophils % 0.8 Basophils % 0.8 Nucleated RBC % 0.0 (0.0-0.3) % Absolute Neutrophils 11.40 H (1.2-6.7) 10^3/uL Absolute Lymphocytes 2.00 (1.2-3.4) 10^3/uL Absolute Monocytes 0.96 H (0.1-0.8) 10^3/uL Absolute Eosinophils 0.12 (0.0-0.7) 10^3/uL Absolute Basophils 0.12 (0.0-0.2) 10^3/uL PT 10.4 (9.1-11.1) sec INR 1.0 (0.9-1.1) APTT 27.0 (23.6-32.8) sec VBG pH (7.31-7.41) VBG pCO2 (41-51) mmHg VBG pO2 mmHg VBG HCO3 (23-28) mmol/L VBG Total CO2 (24-29) mmol/L VBG O2 Saturation % VBG Base Excess (-2-3) mmol/L VBG Lactate (0.6-1.4) mmol/L Sodium 139 (136-145) mmol/L Potassium 4.1 (3.5-5.1) mmol/L Chloride 101 (98-107) mmol/L Carbon Dioxide 28.9 (21.0-32.0) mmol/L Anion Gap 9.1 (3-11) mmol/L BUN 14 (7-18) mg/dL Creatinine 1.8 H (0.70-1.30) mg/dL Est GFR (CKD-EPI 2020) 47.01 (mL/min/1.73m2) Glucose 555 H* (74-106) mg/dL Hemoglobin A1c (<5.7) % Calcium 9.1 (8.5-10.1) mg/dL Magnesium 2.8 H (1.8-2.4) mg/dL Total Bilirubin 0.5 (0.2-1.0) mg/dL AST 26 (15-37) U/L ALT 50 (16-63) U/L Alkaline Phosphatase 82 (46-116) U/L Creatine Kinase 147 (39-308) U/L Troponin I < 50 (<or=60) ng/L NT-Pro-B Natriuret Pep (<300) pg/mL Total Protein 7.5 (6.4-8.2) g/dL Albumin 4.3 (3.4-5.0) g/dL Procalcitonin ng/mL Urine Color Urine Clarity Urine pH Ur Specific [place] Urine Protein Urine Ketones Urine Blood Urine Nitrite Urine Bilirubin Urine Urobilinogen Ur Leukocyte Esterase Urine Glucose Urine Opiates Screen Ur Barbiturates Screen Ur Tricyclics Screen Ur Amphetamines Screen U Benzodiazepines Scrn Urine Cocaine Screen Ur THC Screen Ethyl Alcohol < 3.0 (<10) mg/dL COVID-19 Source SARS-CoV-2 (PCR) (Negative) Influenza Type A (PCR) (Negative) Influenza Type B (PCR) (Negative) RSV (PCR) (Negative) Add-On Test Request 06/12/23 10:45 Blood Culture - Pending Blood 06/12/23 10:30 Blood Culture - Pending Blood [id number] Documentation Fingerstick Glucose Start: 06/12/23 05:05 Freq: Status: Complete Protocol: Activity Type Activity Date Activity User E-sign Co-sign Detail Recorded Client Recorded Date Recorded By Document 06/12/23 09:48 BKG DAEMON(3) [id number] 06/12/23 09:49 BKG DAEMON(4) Intake and Output - 24 Hour Total 06/12/23 04:01 thru 06/12/23 13:30 Intake Total 3027.333 Output Total 600 Balance 2427.333 Weight 93.7 kg Intake: IV 3027.333 Output: Urine 600 Falls Risk Assessment History of Falls No History 06/12/23 14:44 Contributing Factors No Factors 06/12/23 14:44 Ambulatory Aids Independent 06/12/23 14:44 Tubes/Lines W/no contributing factors 06/12/23 14:44 Gait Evaluation No gait disturbance 06/12/23 14:44 Fall Total Score 10 06/12/23 14:44 Level of Risk Standard/Low Risk 06/12/23 14:44 Restraint Information Behavior Requiring Restraints/ Harm to Patient,Harm to Staff & Others Seclusion Date of Initiation 06/12/23 Time Restraints were Initiated 04:17 Note PT no longer is a danger to himself and staff. PT is resting in bed Criteria for Restraint Removal No longer threat to self,No longer threat to other,Behavior Change Date Restraints Removed 06/12/23 Time Restraints Removed 05:10 Was Restraint Order Yes Discontinued If no,why was the order not per ED MD discontinued? Problems (Last Updated 06/12/23 @ 08:29 by Ann-Marie Herman MD) Cardiomegaly (Chronic) Hypermagnesemia (Acute) Leucocytosis (Acute) Hyperglycemia (Acute) Elevated troponin (Acute) Opioid overdose (Acute) Acute respiratory failure with hypoxia and hypercapnia (Acute) Notes 06/12/23 14:57 Nursing Notes by Eliezer Castillo [Patient is presently quite sleepy. Patient 2 will be completed once patient awakens a bit more from sleep.Nursing Note: Initialized on 06/12/23 14:57 - END OF NOTE 06/12/23 13:32 Nursing Notes by Eliezer Castillo Patient arrives on ICU at 13:10 and did not want to be admitted. RN telephonically consults with MD who is informed of patient's desire not to be admitted. MD meets with patient who nods in agreement that he agrees to being admitted. RN speaks with respiratory therapist and informs her MD would like patient to be on BIPAP. Respiratory therapist to go to ED to retrieve BIPAP machine.Nursing Note: Initialized on 06/12/23 13:32 - END OF NOTE 06/12/23 13:30 Nursing Notes by Rupal Reese Nursing Note: Got the patient up to the ICU and he stated What am I being admitted? I told her that I did not want to be admitted. Eliezer from the ICU went and spoke with the hospitalist and she told him that she would come in to his room in the ICU and have a conversation with him. He was agreeable to that plan. Initialized on 06/12/23 13:30 - END OF NOTE 06/12/23 13:27 Nursing Notes by Eliezer Castillo Patient arrives on ICU unit at 13:10. Patient initially said he did not want to be admitted. RN consults with Dr. Herman who sees patient in ICU. Patient nods that he agrees to be admitted. Initialized on 06/12/23 13:27 - END OF NOTE 06/12/23 07:01 Nursing Notes by Spencer Lucas Report given to Rupal LANG Nursing Note: Initialized on 06/12/23 07:01 - END OF NOTE 06/12/23 06:46 Respiratory by Spencer Lucas ED MD increased BiPap O2 to 35% Initialized on 06/12/23 06:46 - END OF NOTE 06/12/23 04:26 Nursing Notes by Spencer Lucas AT 0408 pt STARTED BECOMING AGITATED AND COMBATIVE. pt WAS THRASHING IN BED. Nursing Note: Initialized on 06/12/23 04:26 - END OF NOTE v v v v v v v v v Sending and/or Receiving Nurses: Please use comment section below to note any information pertinent to the patient hand-off not included above. Information / Comments: Report received from: Rupal Reese RN
[2023-06-12] MEDS: Ipratropium/Albuterol 4 GM 120 PUFF INH IH ×2 (17:16→20:04)
[2023-06-12 17:42] LABS: Bilirubin Negative (Negative); Blood Trace-intact (Negative); Clarity Clear (Clear); Glucose Negative (Negative); Ketones 15 mg/dL (Negative); Leukocyte Esterase Negative (Negative); Nitrite Negative (Negative); Specific Gravity >= 1.030 (1.005-1.025); Urobilinogen 0.2 mg/dL (Up to 0.2)
[2023-06-12 17:48] LABS: Bacteria Negative HPF (Negative); C & S Indicated? No; Casts Negative LPF (Negative); Crystals Negative HPF (Negative); Epithelial Cells Rare HPF (Negative); Mucus Negative (Negative); RBC 0-2 HPF (0-2); WBC 0-2 HPF (0-5)
[2023-06-12 17:53] LABS: *AMPHETAMINES SCREEN URINE Negative (Negative); *BARBITURATES SCREEN URINE Negative (Negative); *BENZODIAZEPINES SCREEN URINE Negative (Negative); Cannabinoids THC Positive (Negative); Cocaine Screen,Urine Positive (Negative); METHADONE URINE SCREEN Negative (Negative); OPIATES URINE SCREEN Negative (Negative)
[2023-06-12 17:54] LABS: Tricyclic Antidepressants Negative (Negative)
[2023-06-12] MEDS: Famotidine 20 MG TAB PO (22:40)
[2023-06-13] VITALS (44 sets, daily range): BP systolic 121–170; BP diastolic 69–89; PULSE 49–79; RESP 4–19; TEMP 36.9–38.2; O2SAT 88–98
[2023-06-13] MEDS: Lactated Ringers 1,000 ML 150 ML IV (01:15)
[2023-06-13] MEDS: AMPICILLIN/SULBACTAM 3 GM in Normal Saline 100 ML IVPB ×4 (04:35→22:03)
[2023-06-13] MEDS: Heparin 5,000 UNITS/ML VIAL 5000 UNITS SC ×3 (05:41→22:04)
[2023-06-13 07:15] LABS: Abs Immature Grans 0.02 10^3/uL (0.0-0.06); Absolute Lymphocyte Count 0.71 10^3/uL (1.2-3.4); Absolute Monocyte Count 0.83 10^3/uL (0.1-0.8); Absolute Neutrophil Count 6.73 10^3/uL (1.2-6.7); HCT 45.3 % (40.0-50.0); Immature Grans % 0.2; Lymphocytes % 8.6; MCH 30.3 pg (27.0-33.0); MCHC 33.1 % (32.0-36.0); MCV 92 fL (80-95); Neutrophils % 81.2; Platelet Count 181 10^3/uL (130-400); RBC 4.95 10^6/uL (4.36-5.78); RDW-SD 47.5 fL; WBC 8.29 10^3/uL (4.4-10.8)
[2023-06-13 07:26] LABS: INR 1.1 (0.9-1.1); Prothrombin Time 10.6 sec (9.1-11.1)
[2023-06-13 07:28] LABS: ALT 47 U/L (16-63); AST 30 U/L (15-37); Albumin 3.2 g/dL (3.4-5.0); Alkaline Phosphatase 55 U/L (46-116); Anion Gap 5.3 mmol/L (3-11); BUN 19 mg/dL (7-18); Bilirubin, Direct 0.1 mg/dL (0.0-0.2); Bilirubin, Total 0.3 mg/dL (0.2-1.0); C-Reactive Protein 1.07 mg/dL (0.0-0.3); CO2 30.7 mmol/L (21.0-32.0); CREATININE 1.1 mg/dL (0.70-1.30); Calcium 8.7 mg/dL (8.5-10.1); Chloride 107 mmol/L (98-107); Creatine Kinase 334 U/L (39-308); Estimated GFR 84.89 (mL/min/1.73m2); Glucose 87 mg/dL (74-106); Sodium 143 mmol/L (136-145); Total Protein 5.8 g/dL (6.4-8.2)
[2023-06-13 07:55] LABS: D-Dimer 357 ng/mlFEU (<500)
[2023-06-13] MEDS: Ipratropium/Albuterol 4 GM 120 PUFF INH IH ×4 (07:57→20:57)
[2023-06-13 08:01] LABS: Ferritin 324 ng/mL (26-388)
[2023-06-13 08:38] LABS: Vitamin D 25 Total 15.8 ng/mL (30-100)
[2023-06-13] MEDS: Normal Saline Flush 10 ML SYR IVP ×3 (09:14→23:39)
[2023-06-13] MEDS: Dexamethasone 4 MG TAB 6 MG PO (09:14)
[2023-06-13] MEDS: Ondansetron 4 MG/2 ML VIAL IVP (09:57)
[2023-06-13] MEDS: REMDESIVIR 100 MG in Normal Saline 250 ML 250 MG IVPB (11:18)
--- NOTE | 2023-06-13 12:33 | PHA.REVIEW2 ---
Pharmacy Admission Review Admission Clinical Review Admission Pharmacy Review: (Updated 06/12/23 @ 08:35 by Ann-Marie Herman MD) Hypermagnesemia (Acute) Leucocytosis (Acute) Hyperglycemia (Acute) Elevated troponin (Acute) Opioid overdose (Acute) Acute respiratory failure with hypoxia and hypercapnia (Acute) methamphetamine Allergy (Unknown, Unverified 06/12/23 08:18) Resuscitation Status DNR/DNI Height 5 ft 9 in Weight 94.5 kg Comments Comments/Follow Ups: Was paged @ 6:43am while on way to the hospital for urgent Narcan infusion at a high dose, spoke with lodging house keeper indicating [place] was on the [place] and would be arriving in the next 5 minutes to evaluate the supply of Narcan. [facility] overnight pharmacist had done some research regarding high concentration and what the ED doc was requestinmcg/ml based on patient's pulmonary edema and restricting fluids. Extra Narcan was obtained from various Pyxis machines and the Antidote cart to make a small 3 hour supply (Naloxone 10mg/250ml NS @ 3.2mg/hr=80ml/hr) Incoming ED doc @ change of shift asked me to call around to local pharmacies to get more Narcan, as it was anticipated the patient would require many hours of Naloxone infusion and was not responding as expected. Urine drug screen not obtainable initially, not able to determine what the patient had ingested, other than tainted Cocaine. Unable to be transferred to critical care hospital, positive troponin's, Aspiration Pnuemonia w/N&V, Covid positive. After aprox 6 hours of many Narcan doses, patient was placed on Bipap and appeared to be coming around. Admitted to ICU, Naloxone infusion was stopped per guidance from [facility] Patient on room air today, no fever or elevated WBC, being treated with IV Remdesivir for COVID and Unasyn for Asp.Pneum Pharmacy Admission Review Renal Dosing Renal Dosing: BUN 19 mg/dL (7-18) H 06/13/23 06:00 Creatinine 1.1 mg/dL (0.70-1.30) 06/13/23 06:00 CrCl~97ml/min Anticoagulation Anticoagulation: Hgb 15.0 g/dL (13.5-17.5) D 06/13/23 06:00 Hct 45.3 % (40.0-50.0) 06/13/23 06:00 Plt Count 181 10^3/uL (130-400) 06/13/23 06:00 INR 1.1 (0.9-1.1) 06/13/23 06:00 Creatinine 1.1 mg/dL (0.70-1.30) 06/13/23 06:00 DVT Prophylaxis: Reviewed Medications: Heparin Relevant Labs Relevant Labs: Sodium 143 mmol/L (136-145) 06/13/23 06:00 Potassium 4.0 mmol/L (3.5-5.1) 06/13/23 06:00 Chloride 107 mmol/L (98-107) 06/13/23 06:00 Magnesium 2.0 mg/dL (1.8-2.4) 06/13/23 06:00 C-Reactive Protein 1.07 mg/dL (0.0-0.3) H 06/13/23 06:00 Elevated D-dimer, C-reactive, and Creat.Kinase, low Vitamin-D, Urine Drug screen positive for Cocaine and THC DM Control DM Control: BG on admission was >500, but FSBS were WNL HbA1c 5.8 Cardiac Review Cardiac Review: Troponin I 352 ng/L (<or=60) H* 06/12/23 13:50 NT-Pro-B Natriuret Pep 123 pg/mL (<300) 06/12/23 07:30 Troponin's were trending up on admission suggesting MD (pt has Hx of MD), Aspirin given, no chest pain ER doc mentioned Pulmonary edema trying to restrict fluids, but had rec'd several fluid bolus BP, HR, EF%: Reviewed (BP 132/73, HR 64) QTc Review QTc: Reviewed (QTC 426) Home Meds Home Med List reviewed: N/A (no known home meds, no local physician) Pharmacy Antibiotic Review Relevant Labs: Relevant Labs 06/13/23 06:00 C-Reactive Protein 1.07 H Pharmacy Antibiotic Activity: C/S review (BC no growth x24h) Comments: Treating Aspiration Pneumonia with Unasyn Comments Comments/Follow Ups: Was paged @ 6:43am while on way to the hospital for urgent Narcan infusion at a high dose, spoke with lodging house keeper [place] the [place] and would be arriving in the next 5 minutes to evaluate the supply of Narcan. [facility] overnight pharmacist had done some research regarding high concentration and what the ED doc was requestinmcg/ml based on patient's pulmonary edema and restricting fluids. Extra Narcan was obtained from various Pyxis machines and the Antidote cart to make a small 3 hour supply (Naloxone 10mg/250ml NS @ 3.2mg/hr=80ml/hr) Incoming ED doc @ change of shift asked me to call around to local pharmacies to get more Narcan, as it was anticipated the patient would require many hours of Naloxone infusion and was not responding as expected. Urine drug screen not obtainable initially, not able to determine what the patient had ingested, other than tainted Cocaine. Unable to be transferred to critical care hospital, positive troponin's, Aspiration Pnuemonia w/N&V, Covid positive. After aprox 6 hours of many Narcan doses, patient was placed on Bipap and appeared to be coming around. Admitted to ICU, Naloxone infusion was stopped per guidance from [facility] Patient on room air today, no fever or elevated WBC, being treated with IV Remdesivir for COVID and Unasyn for Asp.Pneum
[2023-06-13] MEDS: Cholecalciferol (Vitamin D3) 1,000 UNIT TAB 2000 UNITS PO (12:43)
--- NOTE | 2023-06-13 13:49 | PDOC.CMIN ---
Date of service: 06/13/23 Time of Service: 13:50 Care Management Initial Assmt Initial Assessment REASON FOR HOSPITALIZATION:: Unintentional opioid overdose, respiratory failure, COVID-19 PREVIOUS FUNCTIONAL STATUS/SOCIAL/FAMILY SUPPORTS:: Resides in [facility], no additional information provided. CURRENT FUNCTIONAL STATUS:: Remains in ICU on COVID precautions. ADVANCE DIRECTIVES:: None on file. Has patient been provided with info about the portal/API?: No Did the patient sign up for the portal?: No CODE STATUS:: Full Code INSURANCE COVERAGE / FINANCIAL ISSUES:: Unknown PRIMARY CARE PHYSICIAN:: Unknown PATIENT/FAMILY EDUCATION NEEDS:: Review discharge instructions, discuss Ask Me Three. ANTICIPATED BARRIERS TO DISCHARGE:: None identified. TRANSPORTATION:: Dependent on disposition and engagement. PLAN:: Antony remains inpatient in the ICU, per Dr. Herman he is agreeable at this time to remaining at [facility] for further testing tomorrow. CM continues to follow. PFSH All Active Problems (Updated 06/13/23 @ 15:00 by Ann-Marie Herman MD) Discharge planning issues (Acute) DVT prophylaxis (Acute) Vitamin D deficiency (Acute) COVID-19 (Acute) Aspiration pneumonia (Acute) Cardiomegaly (Chronic) Hyperglycemia (Acute) Elevated troponin (Acute) Opioid overdose (Acute) Polysubstance use disorder (Acute) Medical History (Updated 06/13/23 @ 15:00 by Ann-Marie Herman MD) Overdose heroin overdose several years ago Rupture of left biceps tendon Opioid overdose Myocardial infarction [facility], in setting of overdose; no cardiac catheterization performed at that time, per patient Surgical History (Updated 06/12/23 @ 08:19 by Ann-Marie Herman MD) H/O meniscectomy of right knee x2 History of lumbosacral spine surgery Femur fracture, left S/p surgical repair Thumb injury R thumb requiring pinning Family History (Updated 06/12/23 @ 08:20 by Ann-Marie Herman MD) Mother Heart disease Diabetes Hypertension Father Heart disease Diabetes Hypertension Maternal Aunt Cancer type unknown Maternal Grandmother Cancer type unknown Social History (Updated 06/12/23 @ 08:21 by Ann-Marie Herman MD) Smoking/Tobacco Use Status: Current every day Smoking risk assessment performed?: Yes Alcohol Intake: never Substance use type: marijuana, crack/cocaine, hallucinogens and opiates Counseling given: Yes Counseling provided: provider counseling SDOH(Care Management) Screening Will the Patient Participate in the Screening?: Unable to obtain Social Determinants of Health Comments(SDOH Details): Pt arousable to simple questions but not able to participate in interview at this time.
--- NOTE | 2023-06-13 14:42 | PGE_ITS ---
Date of Service Date of service: 06/13/23 Time of Service: 09:00 Assessment and Plan Assessment and plan (1) Acute respiratory failure with hypoxia and hypercapnia: Status: Resolved Assessment and plan: In setting of opioid overdose, aspiration pneumonia, COVID-19. Got off of narcan gtt. No longer requiring oxygen. Ok to transfer out of the ICU. (2) Aspiration pneumonia: Status: Acute Assessment and plan: RLL infiltrate seen on CT. Continue unasyn. Leucocytosis resolved. Blood cx w/ NGTD. (3) COVID-19: Status: Acute Assessment and plan: Continue remdesivir, dexamethasone. Encourage pulmonary toilet. (4) Opioid overdose: Status: Acute Assessment and plan: As above I think the patient is still not quite over the overdose as he still has pinpoint pupils and is still quite sleepy. Continue monitoring and symptomatic treatment. I think vomiting was due to this. (5) Elevated troponin: Status: Acute Assessment and plan: In setting of respiratory failure and overdose, as well as Afib, I think this represents demand ischemia. It also sounds like the ID the patient described several years ago at [facility] was a type 2 NSTEMI. Troponins did turn around. Echo is ordered for tomorrow. Continue cardiac monitoring. (6) Afib: Status: Resolved Assessment and plan: Was self-limited at the time of acute respiratory failure and overdose. Continue cardiac monitoring. Await echo. (7) Hyperglycemia: Status: Acute Assessment and plan: The patient denies h/o DM. A1C is 5.8 suggesting prediabetes. I suspect his hyperglycemia was stress response. His original BMP was not c/w DKA. (8) Leucocytosis: Status: Resolved Assessment and plan: Likely reactive given an overdose event as well as due to PNA. This has now resolved. (9) Hypermagnesemia: Status: Resolved Assessment and plan: This has normalized (10) Lactic acidosis: Status: Resolved Assessment and plan: In setting of respiratory failure/overdose/Afib. This appears to have resolved. (11) Cardiomegaly: Status: Chronic Assessment and plan: Seen on CXR with evidence of mild pulmonary congestion. Await echo. (12) Vitamin D deficiency: Status: Acute Assessment and plan: Replete (13) DVT prophylaxis: Status: Acute Assessment and plan: SC heparin (14) Discharge planning issues: Status: Acute Assessment and plan: DNR/DNI Transfer out of the ICU. Continues to require hospitalization. Subjective Subjective Interval history since last seen: Mr Blanc states that he is feeling better today, though he is still sleepy. At the time of my interview, he stated that he felt a little dizzy getting up, but that it had resolved. He denied CP, SOB, n/v. He did eat breakfast. He had expressed a strong desire to go home and go back to work tomorrow. He lives in [place] and is not sure if he has a PCP or insurance right now. We had discussed his staying in the hospital through tomorrow to get the echocardiogram done and he had expressed financial concerns. He had spent the night on BiPAP and had been transitioned to room air. He had passed ambulatory pulse ox. He had been able to urinate independently. Soon after I left the room, he started vomiting. He was medication with zofran. I did talk to him again and asked him if he would reconsider staying, and he said yes. Exam Narrative Exam Narrative: General: A significantly less somnolent middle-aged male who still does look sleepy and still has pinpoint pupils, A&Ox3, cooperative and pleasant, on RA. Starts vomiting violently which I observed right after leaving the room. HEENT: EOMI, pinpoint pupils, MMM, no goiter or JVD, skin abrasions L nares, L cheeks stable. Cardiovascular: RRR, no m/r/g Lungs: CTAB Gastrointestinal: soft, nontender, nondistended Extremities: no edmea BLEs, 1+ pedal pulses B Objective Last Vital Signs Temp 37.1 C 06/13/23 13:15 Pulse 59 L 06/13/23 14:01 Resp 10 L 06/13/23 14:01 BP 130/84 06/13/23 14:01 Pulse Ox 94 06/13/23 14:01 Laboratory Results - last 24 hr 06/12/23 06/13/23 17:20 06:00 WBC 8.29 RBC 4.95 Hgb 15.0 D Hct 45.3 MCV 92 MCH 30.3 MCHC 33.1 RDW 14.0 Plt Count 181 MPV 10.0 Immature Gran % 0.2 Neutrophils % 81.2 Lymphocytes % 8.6 Monocytes % 10.0 Eosinophils % 0.0 Basophils % 0.0 Nucleated RBC % 0.0 Absolute Neutrophils 6.73 H Absolute Lymphocytes 0.71 L Absolute Monocytes 0.83 H Absolute Eosinophils 0.00 Absolute Basophils 0.00 PT 10.6 INR 1.1 D-Dimer 357 Sodium 143 Potassium 4.0 Chloride 107 Carbon Dioxide 30.7 Anion Gap 5.3 BUN 19 H Creatinine 1.1 Est GFR (CKD-EPI 2020) 84.89 Glucose 87 Calcium 8.7 Magnesium 2.0 Ferritin 324 Total Bilirubin 0.3 Conjugated Bilirubin 0.1 AST 30 ALT 47 Alkaline Phosphatase 55 Creatine Kinase 334 H C-Reactive Protein 1.07 H Total Protein 5.8 L Albumin 3.2 L 25-OH Vitamin D Total 15.8 L Urine Color Yellow Urine Clarity Clear Urine pH 5.0 Ur Specific [place] >= 1.030 H Urine Protein Negative Urine Ketones 15 H Urine Blood Trace-intact H Urine Nitrite Negative Urine Bilirubin Negative Urine Urobilinogen 0.2 Ur Leukocyte Esterase Negative Urine RBC 0-2 Urine WBC 0-2 Ur Epithelial Cells Rare Urine Crystals Negative Urine Bacteria Negative Urine Casts Negative Urine Mucus Negative Ur Culture Indicated? No Urine Glucose Negative Urine Opiates Screen Negative Urine Methadone Screen Negative Ur Barbiturates Screen Negative Ur Tricyclics Screen Negative Ur Amphetamines Screen Negative U Benzodiazepines Scrn Negative Urine Cocaine Screen Positive A Ur THC Screen Positive A Time Spent with Patient Time Spent with Patient: 35-49 minutes Time was spent: preparing to see the patient(eg.review tests), obtaining and/or reviewing separately otained hiistory, ordering medications,tests, procedures, referring, communicating with other health personal care assistant, indepentently interpreting results, counseling the patient and care coordination
[2023-06-13] MEDS: Famotidine 20 MG TAB PO (22:04)
[2023-06-13 22:12] LABS: Legionella Ag Detection Urine Negative (Negative)
[2023-06-14] VITALS (20 sets, daily range): BP systolic 123–147; BP diastolic 73–80; PULSE 44–69; RESP 10–20; TEMP 37.1–37.5; O2SAT 90–98
[2023-06-14] MEDS: AMPICILLIN/SULBACTAM 3 GM in Normal Saline 100 ML IVPB ×2 (03:40→11:26)
[2023-06-14] MEDS: Heparin 5,000 UNITS/ML VIAL 5000 UNITS SC ×2 (05:22→14:06)
[2023-06-14 07:04] LABS: Abs Immature Grans 0.02 10^3/uL (0.0-0.06); Absolute Basophil Count 0.01 10^3/uL (0.0-0.2); Absolute Lymphocyte Count 0.84 10^3/uL (1.2-3.4); Absolute Monocyte Count 0.62 10^3/uL (0.1-0.8); Absolute Neutrophil Count 2.98 10^3/uL (1.2-6.7); Basophils % 0.2; HCT 43.2 % (40.0-50.0); HGB 14.3 g/dL (13.5-17.5); Immature Grans % 0.4; Lymphocytes % 18.8; MCHC 33.1 % (32.0-36.0); MCV 91 fL (80-95); Monocytes % 13.9; Neutrophils % 66.7; Platelet Count 153 10^3/uL (130-400); RBC 4.77 10^6/uL (4.36-5.78); RDW 13.7 % (11.8-14.1); WBC 4.47 10^3/uL (4.4-10.8)
[2023-06-14 07:12] LABS: INR 1.1 (0.9-1.1); Prothrombin Time 10.6 sec (9.1-11.1)
[2023-06-14 07:27] LABS: ALT 36 U/L (16-63); AST 28 U/L (15-37); Alkaline Phosphatase 51 U/L (46-116); Anion Gap 5.9 mmol/L (3-11); BUN 15 mg/dL (7-18); Bilirubin, Direct 0.1 mg/dL (0.0-0.2); Bilirubin, Total 0.4 mg/dL (0.2-1.0); C-Reactive Protein 0.84 mg/dL (0.0-0.3); CO2 30.1 mmol/L (21.0-32.0); Calcium 8.4 mg/dL (8.5-10.1); Chloride 103 mmol/L (98-107); Creatine Kinase 297 U/L (39-308); Estimated GFR 92.26 (mL/min/1.73m2); Glucose 130 mg/dL (74-106); Magnesium 2.1 mg/dL (1.8-2.4); Potassium 3.3 mmol/L (3.5-5.1); Sodium 139 mmol/L (136-145); Total Protein 5.7 g/dL (6.4-8.2)
[2023-06-14 07:36] LABS: D-Dimer 362 ng/mlFEU (<500)
[2023-06-14 07:52] LABS: Ferritin 334 ng/mL (26-388)
[2023-06-14 08:00] LABS: Procalcitonin 2.7 ng/mL
--- NOTE | 2023-06-14 08:00 | DI.US_ITS ---
APPROVED REPORT EXAM: Comprehensive 2D, Doppler, and color-flow Echocardiogram Patient Location: In-Patient Room/Bed: 222 Manager Regulatory: Frank Rao RDCS (AE) Indications: afib, nstemi Other Information Study Quality: Good Conclusion 1. Left atrium mildly dilated, other chambers normal in size. 2.Normal LV function without wall motion abnormality,EF 50-55%. Normal RV function. 3.Anatomically normal valves. No significant bregurgitation or stenosis 4.No intracardiac shunt. 5. No pericardial effusion. Wall motion Left Ventricle The left ventricle is normal size. The left ventricular systolic function is normal. The left ventric ular ejection fraction is within the normal range. There is normal left ventricular wall thickness. T here is normal LV segmental wall motion. There is no ventricular septal defect visualized. LVEF is 50 -55%. Right Ventricle The right ventricle is normal size. The right ventricle is normal size. Right ventricular systolic fu nction is grossly normal. Atria Left atrium is mildly dilated. Right atrium is mildly dilated. The interatrial septum is intact with no evidence for an atrial septal defect. Aortic Valve The aortic valve is normal in structure. Aortic valve is probably trileaflet. There is no aortic valv ular stenosis. No aortic regurgitation is present. Mitral Valve Mild mitral annular calcification. No evidence of mitral valve stenosis. There is no mitral valve reg urgitation noted. Tricuspid Valve The tricuspid valve is normal in structure. There is no tricuspid valve stenosis. Trace tricuspid reg urgitation. Unable to assess PA pressure. Pulmonic Valve The pulmonary valve is normal in structure. There is no pulmonic valvular stenosis. There is no pulmo sd valvular regurgitation. Great Vessels The aortic root is normal in size. The ascending aorta is normal in size. Aortic arch is not well vis ualized. IVC is normal in size and collapses >50% with inspiration. Pericardium There is no pericardial effusion. 2D Dimensions IVSD d PLAX 0.58 cm M: 0.6-1.2 Ao Root d 3.47 cm M: 3.1 - 3.7 LVPW d PLAX 0.56 cm M: 0.6 - 1.2 Ao Asc Diam d 3.20 cm M: 2.6 - 3.4 LVID d PLAX 5.61 cm M: 4.2 - 5.8 LVDs 3.97 cm M: 2.5 - 4.0 LV EF Teichholz 55.4 % FS 29.18 % LV EDV (Teich) 154.4 mL LV ESV (Teich) 68.9 mL Stroke Vol Index (Teich) 40.71 M-Mode TAPSE 2.84 cm (M/F) >1.7 Auto EF LV EDV A4C 191.2 mL LV EDV A2C 155.4 mL LV EDV BP 182.1 mL LV ESV A4C 95.9 mL LV ESV A2C 77.8 mL LV ESV BP 90.0 mL LVEF(%) A4C 49.8 % LVEF(%) A2C 49.9 % LVEF(%) BP 50.6 % LV SV A4C 95.3 ml LV SV A2C 77.6 ml LV SV BP 92.1 ml LV CO A4C 5.2 L/min LV CO A2C 4.4 L/min LV CO BP 4.8 L/min HR A4C 54.63 BPM HR A2C 57.15 BPM LV EDV Index (BP) LA Volume LA Length A4C 6.5 cm LA Length A2C 6.1 cm LA Area A4C s 14.99 cm2 LA Area A2C s 18.63 cm2 LA Vol A4C A-L 29.48 mL LA Vol A2C A-L 48.53 mL LA Vol Biplane A-L 39.0 mL LA Vol/BSA A4C A-L LA Vol/BSA A2C A-L LA Vol/BSA BP A-L 18.6 mL/m2 LA Vol A4C MOD 26.7 mL LA Vol A2C MOD 45.9 mL LA Vol BP MOD 35.7 mL RA Volume RA Area A4C 12.3 cm2 RA ESV A4C (A-L) 37.3mL RA Vol/BSA A4C A-L RA Length A4C 3.5 cm RA ESV A4C (MOD) 35.7mL LV Diastology MV E' medial 0.101 (>0.07 m/s) MV E Vmax 1.08 (0.4-1.3 m/s) MV E/E' MED 10.74 (<14) MV A Vmax 0.75 (0.4-1.3 m/s) MV E' lateral 0.148 (>0.1 m/s) E/A Ratio 1.4 MV E/E' LAT 7.31 (<14) MV E' Average 0.124 m/s MV E/E'(average) 8.70 Aortic Valve AoV Vmax 1.43 m/s LVOT Vmax 1.29 m/s AoV Peak Grad 8.2 mmHg LVOT Peak Grad 6.6 mmHg AoV Area (Vmax) 3.57 cm2 LVOT VTI 0.265 m AoV VTI 0.277 m LVOT Mean Grad 3.1 mmHg AoV Mean Juan. 0.98 m/s LVOT SV 105.22 mL AoV Mean Grad 4.4 mmHg LVOT Diam s 2.20 cm AoV Area (VTI) 3.80 cm2 Velocity Ratio 0.90 Mitral Valve MV DT 161 (160-240 msec) Pulmonary Valve PV Vmax 0.98 (0.5-1.5 m/s) RVOT Vmax 0.46 m/s PV Peak Grad 3.8 mmHg RVOT Peak Gr. 0.9 mmHg PV Mean Juan 0.61 m/s RVOT VTI 0.100 m PV Mean Grad 1.8 mmHg RVOT Mean Gr. 0.6 mmHg
[2023-06-14] MEDS: Dexamethasone 4 MG TAB 6 MG PO (08:01)
[2023-06-14] MEDS: Cholecalciferol (Vitamin D3) 1,000 UNIT TAB 2000 UNITS PO (08:01)
[2023-06-14] MEDS: Ipratropium/Albuterol 4 GM 120 PUFF INH IH ×2 (08:02→11:57)
[2023-06-14] MEDS: Normal Saline Flush 10 ML SYR IVP ×2 (08:02→11:27)
--- NOTE | 2023-06-14 08:59 | W.PM.DS.N ---
Date of service: 06/14/23 Time of Service: 09:30 DS: Diagnosis Discharge Diagnosis (1) Acute respiratory failure with hypoxia and hypercapnia: Status: Resolved (2) Aspiration pneumonia: Status: Acute (3) COVID-19: Status: Acute (4) Opioid overdose: Status: Acute (5) Non-ST elevation MT (NSTEMI): Status: Acute (6) Afib: Status: Resolved (7) Hyperglycemia: Status: Acute (8) Leucocytosis: Status: Resolved (9) Hypermagnesemia: Status: Resolved (10) Lactic acidosis: Status: Resolved (11) Cardiomegaly: Status: Chronic (12) Vitamin D deficiency: Status: Acute (13) Hypokalemia: Status: Acute Discharge Plan Disposition Patient Disposition: Home Condition: Improving Discharge Details Reason For Visit: Unintentional opiod overdose, resp failure,Covid-1 Admit Date/Time: 06/12/23 12:00 Admit Provider: Ann-Marie Herman Attending Provider: Ann-Marie Herman Primary Care Provider: Unknown,Unknown Hospital Course Hospital Course: Mr Juarez is a 48 year old male with PMHx of polysubstance abuse including cocaine, marijuana, opiates w/ a h/o heroin overdose in the past, and tobacco, as well as h/o an acute MT in setting of a prior heroin overdose, who is from [place] and does not usually receive his care here, who was admitted to [facility] ICU on 06/12/22 after presenting to [facility] ED post apparent opioid overdose. Reportedly, the patient had smoked what he thought was cocaine, after which he got into a vehicle with his significant other (who was the yard truck driver), fell asleep with sonorous respirations, was not waking up despite her attempts to wake him up. When he was extracted from the car in the ED parking lot, he was cyanotic and had pinpoint pupils. O2 sats in triage were recorded as 80%. He responded to narcan, becoming agitated, but then again became somnolent, requiring multiple doses of narcan and, eventually, a narcan drip as well as BiPAP (10/5; 30% FiO2) and oxygen for respiratory support. He was in rapid Afib which was self-limited. The patient did tell us in the ED that he wanted to be DNR, DNI, but was willing to have BiPAP treatment and ICU level of care. He was found to be positive for COVID-19, have evidence of a RLL pneumonia, and have an elevated procalcitonin as well as a leucocytosis. This was thought to be due to aspiration, given his overdose as well as witnessed vomiting in the ED. He was started on remdesivir, dexamethasone, and unasyn as well as bronchodilators. He was able to come off of narcan drip. While he was on the narcan gtt, plans were to transfer him to a facility with a better stock of narcan as [facility] was running out, but this became no longer an issue once he got off of the narcan gtt. The patient's oxygen requirement resolved entirely by hospital day 2, and he was transferred out of the ICU. He had nausea and vomiting that day, precluding his discharge. Today, he is off of oxygen, his mental status is his baseline, and he is clinically feeling better. His procalcitonin is worse, based on which doxycycline was added to the regimen, but clinically he is doing significantly better with resolution of leucocytosis. He did have an elevation of troponin without evidence of ischemia on EKGs. His troponin I had got up to 363. He never had chest pain. It is thought that the elevated troponin represents a type 2 NSTEMI due to the respiratory failure/overdose/Afib/pneumonia/COVID-19. His echocardiogram revealed a preserved LVEF, no wall motion abnormalities, no hemodynamically significant valvular disease. His blood cultures were negative. He is felt safe to be discharged home today with a 5 day course of augmentin + doxycycline. He had hyperglycemia without evidence of DKA on presentation with BGs in 500s. A1C is 5.8 c/w prediabetes. Hyperglycemia is felt to be due to a stress response. He is instructed to self-isolate due to COVID-19. He is instructed to avoid use of illicit substances. He specifically declined counseling on resources available in the community. He is instructed to get a PCP. He is medically stable for discharge and is ready for discharge. Care for patient as well as completion of his discharge summary on day of discharge took 60 minutes. Home Meds and New Rx's Prescriptions: New Combivent Respimat 20-100 mcg/actuation Mist 1 puff inhalation QID Qty: 4 0RF naloxone [Narcan] 4 mg/actuation spray,non-aerosol 4 mg intranasal Q2M PRNQty: 2 0RF Rx Instructions: spray 1 dose into ONE nostril; alternate nostrils w each dose until help arrives amoxicillin-pot clavulanate 875-125 mg tablet 1 tab PO Q12H Qty: 10 0RF doxycycline hyclate 100 mg tablet 100 mg PO BID Qty: 10 0RF guaifenesin [Mucinex] 600 mg tablet extended release 12hr 600 mg PO Q12H PRNQty: 30 0RF Discharge Instructions Instructions: Doxycycline (By mouth), Amoxicillin/Clavulanate Potassium (By mouth), Naloxone (Into the nose), Aspiration Pneumonia (DC), Adult Overdose (ED), Prediabetes (DC), COVID-19 (Coronavirus Disease 2019) (DC) Additional Instructions: Return to the hospital with any fever, bleeding, chest pain, or worsening shortness of breath. Follow up with your PCP in 1-2 weeks. Activity:: Activity as Tolerated Equipment/Supplies:: No Equipment Needed Diet:: As Tolerated Discharge Orders Discharge Orders: Discharge Order (Routine); Ordered 06/14/23 Ordered By: Ann-Marie Herman DS: Summary Time Spent with Patient providing and/or coordinating discharge services: Greater than 30 minutes Status at Discharge Functional status at discharge: independent ambulation Overall status at discharge: patient is progressing back to baseline Mental Status: mental status grossly normal Speech and Movement: speech and movement normal Mood: congruent mood Affect: normal affect Quality:SDOH Health Related Social Needs: No Data to Display Exam Narrative Exam Narrative: General: A significantly less somnolent middle-aged male who is A&OX3, looks very awake, on RA HEENT: EOMI, MMM Cardiovascular: RRR, no m/r/g Lungs: CTAB Gastrointestinal: soft, nontender, nondistended Extremities: no edmea BLEs, 1+ pedal pulses B Psych Mental Status: mental status grossly normal Speech and Movement: speech and movement normal Mood: congruent mood Affect: normal affect DS: Data Vitals/I&O Vitals and I&O: Vital Signs Temperature 37.3 C 06/14/23 04:00 Temperature Source Temporal Artery Scan 06/14/23 04:00 Pulse 64 06/14/23 04:00 Pulse Rhythm Regular 06/14/23 08:13 Pulse 59 L 06/14/23 08:00 Respiratory Rate 18 06/14/23 08:00 Respiratory Effort Normal 06/14/23 08:13 Respiratory Depth Normal 06/14/23 08:13 Respiratory Pattern Normal 06/14/23 08:13 Blood Pressure 136/74 06/14/23 04:00 Blood Pressure Mean 94 06/14/23 03:46 Blood Pressure Position Supine 06/13/23 08:30 Pulse Oximetry 94 06/14/23 08:00 Respiratory End-tidal CO2 49 06/12/23 13:24 Oxygen Delivery Method Room Air 06/14/23 04:00 Oxygen Flow Rate 0 06/14/23 04:00 Fraction of Inspired Oxygen (FIO2) 21 06/14/23 08:02 Pain Level 0 06/14/23 01:00 Comment Pressure of 10 peep of 5 06/12/23 14:35 Intake & Output 06/13/23 06/13/23 06/14/23 11:59 23:59 11:59 Intake Total 1862.5 / 2672.5 810 / 2672.5 500 / 500 Output Total 1050 / 0 1000 / 2050 825 / 825 Balance 812.5 / 622.5 -190 / 622.5 -325 / -325 Weight 94.5 kg 94.4 kg Intake: IV 1502.5 / 1952.5 450 / 1952.5 110 / 110 Oral 360 / 720 360 / 720 390 / 390 Output: Urine 1050 / 2050 1000 / 2050 825 / 825 Other: Urine Color Yellow Yellow Yellow Urine Appearance Clear Clear Clear Urine Odor None Strong None Comment stood to void without difficulty Voiding Methods Urinal Urinal Urinal Data Completed and Pending Completed studies during hospitalization [Text1]: CXR: 1. No focal consolidating infiltrates. 2. Exam limited by poor inspiration. 3. Mild cardiomegaly and pulmonary venous congestion. CT head/c-spine: 1. No acute intracranial process. 2. No acute fracture or subluxation in the cervical spine. CT chest/abdomen/pelvis: 1. Right lower lobe infiltrate. Differential considerations include infection or contusion. Aspiration should be considered. 2. No acute abdominal or pelvic process. Echo: 1. Left atrium mildly dilated, other chambers normal in size. 2.Normal LV function without wall motion abnormality,EF 50-55%. Normal RV function. 3.Anatomically normal valves. No significant bregurgitation or stenosis 4.No intracardiac shunt. 5. No pericardial effusion Labs on day of discharge: Labs from last 24 hours 06/14/23 06/13/23 06/12/23 05:55 00:30 17:20 WBC 4.47 RBC 4.77 Hgb 14.3 Hct 43.2 MCV 91 MCH 30.0 MCHC 33.1 RDW 13.7 Plt Count 153 MPV 10.0 Immature Gran % 0.4 Neutrophils % 66.7 Lymphocytes % 18.8 Monocytes % 13.9 Eosinophils % 0.0 Basophils % 0.2 Nucleated RBC % 0.0 Absolute Neutrophils 2.98 Absolute Lymphocytes 0.84 L Absolute Monocytes 0.62 Absolute Eosinophils 0.00 Absolute Basophils 0.01 PT 10.6 INR 1.1 D-Dimer 362 Sodium 139 Potassium 3.3 L Chloride 103 Carbon Dioxide 30.1 Anion Gap 5.9 BUN 15 Creatinine 1.0 Est GFR (CKD-EPI 2020) 92.26 Glucose 130 H Calcium 8.4 L Magnesium 2.1 Ferritin 334 Total Bilirubin 0.4 Conjugated Bilirubin 0.1 AST 28 ALT 36 Alkaline Phosphatase 51 Creatine Kinase 297 C-Reactive Protein 0.84 H Total Protein 5.7 L Albumin 3.0 L Procalcitonin 2.7 Urine Legionella Ag Negative M. pneumoniae Source Pending M. pneumoniae (PCR) Pending Preliminary micro results at discharge 06/12/23 10:45 Blood Culture - Preliminary Blood NO GROWTH 24 HOURS 06/12/23 10:30 Blood Culture - Preliminary Blood NO GROWTH 24 HOURS PFSH All Active Problems (Updated 06/14/23 @ 14:29 by Ann-Marie Herman MD) Non-ST elevation MT (NSTEMI) (Acute) Hypokalemia (Acute) Discharge planning issues (Acute) DVT prophylaxis (Acute) Vitamin D deficiency (Acute) COVID-19 (Acute) Aspiration pneumonia (Acute) Cardiomegaly (Chronic) Hyperglycemia (Acute) Elevated troponin (Acute) Opioid overdose (Acute) Polysubstance use disorder (Acute) Medical History (Updated 06/14/23 @ 14:29 by Ann-Marie Herman MD) Overdose heroin overdose several years ago Rupture of left biceps tendon Opioid overdose Myocardial infarction [facility], in setting of overdose; no cardiac catheterization performed at that time, per patient Surgical History (Updated 06/12/23 @ 08:19 by Ann-Marie Herman MD) H/O meniscectomy of right knee x2 History of lumbosacral spine surgery Femur fracture, left S/p surgical repair Thumb injury R thumb requiring pinning Family History (Updated 06/12/23 @ 08:20 by Ann-Marie Herman MD) Mother Heart disease Diabetes Hypertension Father Heart disease Diabetes Hypertension Maternal Aunt Cancer type unknown Maternal Grandmother Cancer type unknown Social History (Updated 06/12/23 @ 08:21 by Ann-Marie Herman MD) Smoking/Tobacco Use Status: Current every day Smoking risk assessment performed?: Yes Alcohol Intake: never Substance use type: marijuana, crack/cocaine, hallucinogens and opiates Counseling given: Yes Counseling provided: provider counseling Time Spent with Patient Time Spent with Patient: 45-69 minutes Time was spent: preparing to see the patient(eg.review tests), obtaining and/or reviewing separately otained hiistory, ordering medications,tests, procedures, referring, communicating with other health healthcare sales representative, indepentently interpreting results, counseling the patient and care coordination
[2023-06-14] MEDS: Potassium Chloride 20 MEQ TABCR PO (09:19)
[2023-06-14] MEDS: DOXYCYCLINE 100 MG in Normal Saline 100 ML IVPB (09:46)
--- NOTE | 2023-06-14 10:14 | PDOC.CMDIS ---
Date of service: 06/14/23 Time of Service: 10:14 LACE Index Scoring Tool Questions: Length of Stay (in days): 2 Was the patient admitted via the E.D.?: Yes E.D. Visits: 0 Answers: Total Score: 5 Risk of Readmission: Low Risk Care Management Discharge Plan Reason for Hospitalization: Unintentional opioid overdose, respiratory failure, COVID-19 Discharge Plan: Antony will return home to [place] with his girlfriend, via private vehicle. He will follow up with services locally, in his own community. Patient/Family Education Needs: Review discharge instructions, discuss Ask Me Three. SDOH Health Related Social Needs: No Data to Display
[2023-06-14] MEDS: REMDESIVIR 100 MG in Normal Saline 250 ML 250 MG IVPB (11:25)
[2023-06-14] MEDS: Insulin Aspart 300 UNITS/3 ML PEN SC (11:49)
[2023-06-15 16:43] LABS: Streptococcus Pneumoniae Ag, U Negative (Negative)
[2023-06-20 19:13] LABS: Mycoplasma Pneumoniae PCR Negative (Negative); Specimen source SPUTUM
== END 2023-06-14 17:32 | disposition home or self-care (01) | DRG 917 ==
LOC: ER 11:03 → ICU 13:30
PROVIDERS: Emergency Medicine Emergency Medical Services; Admitting Provider Internal Medicine; Emergency Provider Emergency Medicine Emergency Medical Services; Visit Provider Internal Medicine
DX: T40.2X1A Poisoning by other opioids, accidental (unintentional), initial encounter (principal); I21.A1 Myocardial infarction type 2; U07.1 COVID-19; J96.01 Acute respiratory failure with hypoxia; J69.0 Pneumonitis due to inhalation of food and vomit; J96.02 Acute respiratory failure with hypercapnia; E87.20 Acidosis, unspecified; M62.82 Rhabdomyolysis; I48.92 Unspecified atrial flutter; I48.91 Unspecified atrial fibrillation; R79.89 Other specified abnormal findings of blood chemistry; R73.03 Prediabetes; D72.829 Elevated white blood cell count, unspecified; E87.6 Hypokalemia; I51.7 Cardiomegaly; Z66 Do not resuscitate; I25.2 Old myocardial infarction; F17.210 Nicotine dependence, cigarettes, uncomplicated; E83.41 Hypermagnesemia
CPT/HCPCS: 00123; 36410; 36415; 36416; 71250; 80048; 80053; 80076; 80307; 82306; 82550; 82805; 82962; 84145; 87040; 87449; 87637; 93005; 94618; 94640; 96361; 96365; 96366; 96367; 96375; 96376; 99291; 99292; 70450; 71045; 72125; 74176; 80320; 81003; 81015; 82728; 83036; 83605; 83735; 83880; 84484; 85025; 85379; 85610; 85730; 86140; 87581; 87899; 93010; 93306; 94660; 94664; 94668; 94760; 99223; 99233; 99239; J0248; J0295; J1100; J1644; J1790; J1815; J2310; J2405; J3490; J8540